=== PATIENT | female | born 1950 | race Caucasian/White ===

== ENCOUNTER 2021-06-13 14:25 | Inpatient (IN) | payer BC, MEDICARE ==
[~2021-06-13] VITALS: Ht 170.2 cm; Wt 89.5 kg
[2021-06-13 15:15] LABS: BASOPHILS # (AUTO) 0.1 X10'3 (0-0.2); BASOPHILS % (AUTO) 0.9 % (0-1); EOSINOPHILS # (AUTO) 0.3 X10'3 (0-0.9); EOSINOPHILS % (AUTO) 3.7 % (0-6); HEMOGLOBIN 10.3 g/dl (12.0-16.0); LYMPHOCYTES # (AUTO) 0.8 X10'3 (1.1-4.8); LYMPHOCYTES % (AUTO) 10.6 % (21-51); MEAN CORPUSCULAR HEMOGLOBIN 28.6 PG (27.0-31.0); MEAN CORPUSCULAR HGB CONC 32.2 g/dL (33.0-36.5); MEAN CORPUSCULAR VOLUME 88.7 FL (78-98); MEAN PLATELET VOLUME 7.5 FL (7.4-10.4); MONOCYTES # (AUTO) 0.2 X10'3 (0-0.9); MONOCYTES % (AUTO) 3.1 % (2-12); NEUTROPHILS % (AUTO) 81.7 % (42-75); PLATELET COUNT 375 X10'3 (140-440); RED BLOOD COUNT 3.61 X10'6 (4.20-5.60); RED CELL DISTRIBUTION WIDTH 15.3 % (11.5-14.5); WHITE BLOOD COUNT 7.3 X10'3 (4.5-11.0)
[2021-06-13 15:31] LABS: ALANINE AMINOTRANSFERASE 118 U/L (12-78); ALBUMIN 3.7 G/DL (3.4-5.0); ALBUMIN/GLOBULIN RATIO 1.1 (1.1-1.5); ALKALINE PHOSPHATASE 265 IU/L (46-116); ANION GAP 9 (8-16); ASPARTATE AMINO TRANSFERASE 288 U/L (10-37); BILIRUBIN,TOTAL 0.6 MG/DL (0.1-1.0); BLOOD UREA NITROGEN 15 MG/DL (7-18); BUN/CREATININE RATIO 15.8 (6.6-38.0); CALCIUM 9.8 MG/DL (8.5-10.1); CHLORIDE 100 MMOL/L (99-107); CREATININE 0.95 MG/DL (0.40-0.90); GLUCOSE 114 MG/DL (70-104); SODIUM 137 MMOL/L (135-145); TOTAL CARBON DIOXIDE 28.5 MMOL/L (24-32); TOTAL PROTEIN 7.1 G/DL (6.4-8.2); eGFR 58 ML/MIN
[2021-06-13] MEDS ORDERED: HYDROcodone/acetaminophen 10/325mg tab PO ONE (17:10)
[2021-06-13] MEDS ORDERED: acetaminophen 325mg tablet PO PRN (17:35)
[2021-06-13] MEDS ORDERED: magnesium hydroxide 30ml (MOM) UD suspension PO PRN (17:35)
[2021-06-13] MEDS: normal saline 1000ml 1,000 ML IV SCH (17:35)
[2021-06-13] MEDS ORDERED: mag hydrox/Alum hydrox/simeth 30ml oral suspension PO PRN (17:35)
[2021-06-13] MEDS ORDERED: ondansetron/PF 4mg/2ml inj IV PRN (17:35)
[2021-06-13] MEDS ORDERED: METO-395 PO (18:17)
[2021-06-13] MEDS ORDERED: ASCO500T20 PO (18:17)
[2021-06-13] MEDS ORDERED: LOSA100T57 PO (18:17)
[2021-06-13] MEDS ORDERED: MAGN500C16 PO (18:17)
[2021-06-13] MEDS ORDERED: HYDR12.55 PO (18:17)
[2021-06-13] MEDS ORDERED: AMIO200T61 PO (18:17)
[2021-06-13] MEDS ORDERED: APIX5TAB3 PO (18:17)
[2021-06-13] MEDS ORDERED: CHOL10006 PO (18:17)
[2021-06-13] MEDS ORDERED: DOCU100C40 PO ×2 (18:17)
[2021-06-13] MEDS ORDERED: HYDR-3972 PO (18:17)
[2021-06-13] MEDS ORDERED: SIMV-42 PO (18:17)
[2021-06-13] MEDS ORDERED: FERR325T29 PO (18:17)
[2021-06-13] MEDS: ferrous sulfate 325mg tablet PO SCH (18:35)
[2021-06-13] MEDS ORDERED: docusate sod 100mg capsule PO SCH (20:00)
--- NOTE | 2021-06-13 20:14 | NUR ---
DR. JOSE ROSE FOR PO MEDS. HOLD IRON PER MD ORDER
[2021-06-13] MEDS: metoprolol succinate 25mg (24-HOUR) SR. Tablet PO SCH (20:22)
[2021-06-13] MEDS: docusate sod 100mg capsule PO SCH (20:24)
[2021-06-13] MEDS ORDERED: atorvastatin 20mg tablet PO SCH (21:00)
[2021-06-14] MEDS: HYDROcodone/acetaminophen 10/325mg tab PO PRN ×3 (01:51→20:07)
[2021-06-14 02:34] LABS: ALBUMIN 3.6 G/DL (3.4-5.0); ALBUMIN/GLOBULIN RATIO 1.1 (1.1-1.5); ALKALINE PHOSPHATASE 360 IU/L (46-116); ANION GAP 7 (8-16); BILIRUBIN,TOTAL 1.8 MG/DL (0.1-1.0); BLOOD UREA NITROGEN 14 MG/DL (7-18); BUN/CREATININE RATIO 12.8 (6.6-38.0); CALCIUM 9.6 MG/DL (8.5-10.1); CHLORIDE 100 MMOL/L (99-107); CREATININE 1.09 MG/DL (0.40-0.90); GLUCOSE 127 MG/DL (70-104); POTASSIUM 3.8 MMOL/L (3.5-5.1); SODIUM 135 MMOL/L (135-145); TOTAL CARBON DIOXIDE 27.9 MMOL/L (24-32); TOTAL PROTEIN 6.9 G/DL (6.4-8.2); eGFR 50 ML/MIN
[2021-06-14 03:06] LABS: ASPARTATE AMINO TRANSFERASE 2699 U/L (10-37)
[2021-06-14 03:07] LABS: ALANINE AMINOTRANSFERASE 1510 U/L (12-78)
[2021-06-14] MEDS: normal saline 1000ml 1,000 ML IV SCH ×3 (03:35→17:25)
[2021-06-14] MEDS: metoprolol succinate 25mg (24-HOUR) SR. Tablet PO SCH ×2 (08:00→20:06)
[2021-06-14 09:01] LABS: BASOPHILS % (AUTO) 0.7 % (0-1); EOSINOPHILS % (AUTO) 0.5 % (0-6); HEMATOCRIT 30.9 % (35.0-45.0); HEMOGLOBIN 10.1 g/dl (12.0-16.0); LYMPHOCYTES # (AUTO) 0.6 X10'3 (1.1-4.8); LYMPHOCYTES % (AUTO) 9.2 % (21-51); MEAN CORPUSCULAR HEMOGLOBIN 28.7 PG (27.0-31.0); MEAN CORPUSCULAR HGB CONC 32.7 g/dL (33.0-36.5); MEAN CORPUSCULAR VOLUME 87.8 FL (78-98); MEAN PLATELET VOLUME 7.6 FL (7.4-10.4); MONOCYTES # (AUTO) 0.9 X10'3 (0-0.9); MONOCYTES % (AUTO) 12.8 % (2-12); NEUTROPHILS # (AUTO) 5.3 X10'3 (1.8-7.7); NEUTROPHILS % (AUTO) 76.8 % (42-75); PLATELET COUNT 357 X10'3 (140-440); RED BLOOD COUNT 3.52 X10'6 (4.20-5.60); RED CELL DISTRIBUTION WIDTH 15.7 % (11.5-14.5); WHITE BLOOD COUNT 6.9 X10'3 (4.5-11.0)
[2021-06-14] MEDS: amiodarone 200mg tablet PO SCH (10:29)
[2021-06-14] MEDS: cholecalciferol (vitamin D3) 1,000 unit (25mcg) tablet PO SCH (10:31)
[2021-06-14] MEDS: HYDROchlorothiazide 12.5mg capsule PO SCH (10:31)
[2021-06-14] MEDS: losartan 50mg tablet PO SCH (10:33)
[2021-06-14] MEDS: magnesium oxide 400mg tablet PO SCH (10:34)
[2021-06-14] MEDS: docusate sod 100mg capsule PO SCH ×2 (10:35→20:06)
--- NOTE | 2021-06-14 15:49 | NUR ---
Report received from Tressa MARTINEZ
[2021-06-14 16:10] VITALS: BP 139/51
--- NOTE | 2021-06-14 16:10 | NUR ---
Pt arrived to surgical floor via [facility]
[2021-06-14 18:00] VITALS: BP 131/55
--- NOTE | 2021-06-14 19:07 | NUR ---
Problems reprioritized. Patient report given, questions answered & plan of care reviewed with MICHELLE Ac.
[2021-06-15] VITALS (22 sets, daily range): BP systolic 102–174; BP diastolic 40–83
[2021-06-15] MEDS: HYDROcodone/acetaminophen 10/325mg tab PO PRN ×2 (04:44→21:22)
[2021-06-15 06:23] LABS: BASOPHILS % (AUTO) 0.7 % (0-1); EOSINOPHILS # (AUTO) 0.2 X10'3 (0-0.9); EOSINOPHILS % (AUTO) 3.2 % (0-6); HEMATOCRIT 28.3 % (35.0-45.0); HEMOGLOBIN 9.3 g/dl (12.0-16.0); LYMPHOCYTES # (AUTO) 0.7 X10'3 (1.1-4.8); LYMPHOCYTES % (AUTO) 11.9 % (21-51); MEAN CORPUSCULAR HEMOGLOBIN 28.7 PG (27.0-31.0); MEAN CORPUSCULAR HGB CONC 32.8 g/dL (33.0-36.5); MEAN CORPUSCULAR VOLUME 87.5 FL (78-98); MONOCYTES # (AUTO) 0.7 X10'3 (0-0.9); MONOCYTES % (AUTO) 11.3 % (2-12); NEUTROPHILS # (AUTO) 4.3 X10'3 (1.8-7.7); NEUTROPHILS % (AUTO) 72.9 % (42-75); PLATELET COUNT 335 X10'3 (140-440); RED BLOOD COUNT 3.23 X10'6 (4.20-5.60); WHITE BLOOD COUNT 5.9 X10'3 (4.5-11.0)
[2021-06-15 06:34] LABS: PRE OP PARTIAL THROMB. TIME 27 SECONDS (22-32)
[2021-06-15 06:38] LABS: ALANINE AMINOTRANSFERASE 669 U/L (12-78); ALBUMIN 3.2 G/DL (3.4-5.0); ALKALINE PHOSPHATASE 275 IU/L (46-116); ANION GAP 7 (8-16); ASPARTATE AMINO TRANSFERASE 432 U/L (10-37); BILIRUBIN,TOTAL 0.9 MG/DL (0.1-1.0); BLOOD UREA NITROGEN 15 MG/DL (7-18); CALCIUM 9.5 MG/DL (8.5-10.1); CHLORIDE 102 MMOL/L (99-107); CREATININE 1.07 MG/DL (0.40-0.90); GLUCOSE 94 MG/DL (70-104); POTASSIUM 3.5 MMOL/L (3.5-5.1); SODIUM 136 MMOL/L (135-145); TOTAL CARBON DIOXIDE 27.4 MMOL/L (24-32); TOTAL PROTEIN 6.5 G/DL (6.4-8.2); eGFR 51 ML/MIN
[2021-06-15] MEDS ORDERED: INDOCYANINE GREEN 25 MG/10 ML VIAL IV ONE (07:00)
--- NOTE | 2021-06-15 07:02 | NUR ---
Problems reprioritized. Patient report given, questions answered & plan of care reviewed with Nunu MARTINEZ.
--- NOTE | 2021-06-15 07:09 | NUR ---
Patient in room [facility] 357. I have received report from Osorio MARTINEZ and had the opportunity to ask questions and assume patient care.
--- NOTE | 2021-06-15 07:58 | NUR ---
Problems reprioritized. Patient report given, questions answered & plan of care reviewed with Luis Miguel OR smelter charger, also notified of pt's gastric sleeve.
[2021-06-15] MEDS: cholecalciferol (vitamin D3) 1,000 unit (25mcg) tablet PO SCH (08:00)
[2021-06-15] MEDS: magnesium oxide 400mg tablet PO SCH (08:00)
[2021-06-15] MEDS ORDERED: LIDOcaine 1% 30ml preserv. free vial ONE (08:00)
[2021-06-15] MEDS: losartan 50mg tablet PO SCH (08:00)
[2021-06-15] MEDS: docusate sod 100mg capsule PO SCH ×2 (08:00→20:23)
[2021-06-15] MEDS ORDERED: morphine 2 MG/ML inj. syringe IV PRN (08:00)
[2021-06-15] MEDS ORDERED: fentaNYL/PF 50MCG/1 ML 2ML syringe IV PRN ×2 (08:00)
[2021-06-15] MEDS: metoprolol succinate 25mg (24-HOUR) SR. Tablet PO SCH ×2 (08:00→20:23)
[2021-06-15] MEDS ORDERED: ondansetron/PF 4mg/2ml inj IV PRN (08:00)
[2021-06-15] MEDS ORDERED: hydrALAZINE 20mg/ml inj. IV PRN (08:00)
[2021-06-15] MEDS ORDERED: BUPIVAcaine/PF 2.5mg/ml (0.25%) 10ml vial ONE (08:00)
[2021-06-15] MEDS ORDERED: ringers solution, lacted 1,000 ML IV SCH (08:00)
[2021-06-15] MEDS: amiodarone 200mg tablet PO SCH (08:22)
--- NOTE | 2021-06-15 08:24 | NUR ---
phone call to OR delfin Thomas RN to give pt Amiodorone as ordered. Held Addendum: 06/15/21 at 0825 by Katherine Badillo RN Held BP meds due to low HR of 56, BP 105/57, pt asymptomatic and denies s/sx distress, no c/o. will continue to monitor.
[2021-06-15] MEDS ORDERED: fentaNYL/PF 50MCG/1 ML 2ML syringe ONE (08:45)
[2021-06-15] MEDS ORDERED: propofol inj 20 ML IV ONE (08:46)
[2021-06-15] MEDS ORDERED: midazolam 1 mg/ML 2ml injection ONE (08:46)
[2021-06-15] MEDS ORDERED: LIDOcaine 2% (20mg/ml) 5ml vial ONE (08:46)
[2021-06-15] MEDS ORDERED: meperidine/PF 50mg/ml syringe ONE (08:46)
[2021-06-15] MEDS ORDERED: rocuronium 10mg/ml inj IV ONE (08:46)
[2021-06-15] MEDS ORDERED: ondansetron/PF 4mg/2ml inj ONE (08:47)
[2021-06-15] MEDS ORDERED: sevoflurane 250ml liquid IH ONE (09:00)
[2021-06-15] MEDS ORDERED: neostigmine methylsulfate 1 MG/ML 10ml vial ONE (09:00)
[2021-06-15] MEDS ORDERED: ceFAZolin 1000mg inj ONE ×2 (09:03)
[2021-06-15] MEDS ORDERED: dexamethasone sod phosphate 4mg/ml inj. ONE (09:11)
[2021-06-15] MEDS ORDERED: glycopyrrolate 0.2mg/ml inj ONE (10:30)
[2021-06-15] MEDS ORDERED: sugammadex 200mg/2ml injection IV ONE (10:53)
--- NOTE | 2021-06-15 11:00 | NUR ---
Received from OR via , accompanied by Anesthesiologist DR CROFT and report given by Anesthesiolgist. PT PRESENTS WITH 20G LEFT HAND, VSS, ABD DRESSIGN DRY AND INTACT WITH LUCIA DRAIN. Addendum: 06/15/21 at 1121 by Roberta Berrios RN, RN Amended: Links added.
[2021-06-15] MEDS: morphine 4 MG/ML inj SYRINge IV PRN ×3 (11:23→12:15)
[2021-06-15] MEDS: labetalol 20mg/4ml (5mg/ml) syringe IV PRN ×3 (11:32→12:01)
--- NOTE | 2021-06-15 11:45 | NUR ---
I have received report from Roberta MARTINEZ Recovery and had the opportunity to ask questions and will assume patient care once to unit.
--- NOTE | 2021-06-15 12:30 | NUR ---
Pt back to Room 357B. A&Ox4, sleepy from surgery but easily aroused. VSS. No s/sx distress, no c/o at this time. x3 Lap Choley sites to mid-abdomen with bandaids, CDI, LUCIA drain to right draining small amt sanguinous fluid with bandaid CDI. Gag reflex checked and is intact. Ice chips and water given. Will continue to monitor.
--- NOTE | 2021-06-15 12:30 | NUR ---
PATIENT TAKEN TO ROOM WITH ALL BELONGINGS AND HOOKED UP TO MONITORS IN ROOM AND GIVEN CALL LIGHT, REPORT GIVEN TO KHOI MARTINEZ WHO HAS TAKEN OVER PATIENT CARE. Addendum: 06/15/21 at 1238 by Roberta Berrios RN, RN Amended: Links added.
[2021-06-15] MEDS: HYDROchlorothiazide 12.5mg capsule PO SCH (13:26)
--- NOTE | 2021-06-15 18:25 | NUR ---
Problems reprioritized. Patient report given, questions answered & plan of care reviewed with Desiree MARTINEZ.
--- NOTE | 2021-06-15 18:30 | NUR ---
Patient in room [facility] 357. I have received report from KHOI and had the opportunity to ask questions and assume patient care. ASSUMED CARE OF PT WITH RN STUDENT CHANDRIKA Huffman
[2021-06-15] MEDS: HYDROmorphone inj. 0.5 MG/0.5 ML DISP.SYRIN IV PRN ×2 (19:05→23:45)
[2021-06-15] MEDS: normal saline 1000ml 1,000 ML IV SCH ×2 (19:35→20:30)
[2021-06-15] MEDS: enoxaparin 30mg/0.3ml syringe SQ SCH (20:25)
--- NOTE | 2021-06-15 21:50 | NUR ---
ATTEMPTED TO AMBULATE PT WITH 2 PERSON AND FWW. PT C/O INCREASED ABDOMINAL PAIN, DIZZINESS AND SOB. PT ASSISTED BACK TO BED. BP 118/65, HR 61, RR 20, OXYGEN SATURATIONS 92% RA. PT VERBALIZED RELIEF UPON RETURNING TO BED. WILL CONTINUE TO MONITOR.
[2021-06-16] VITALS (10 sets, daily range): BP systolic 115–149; BP diastolic 57–84
--- NOTE | 2021-06-16 03:20 | NUR ---
Student documentation: I have reviewed and agree with all interventions, assessments performed and documented by CHANDRIKA Frost Medication Administration: For this medication-pass time frame, all medication were reviewed, dispensed, administered and documented per hospital policy by CHANDRIKA Huffman
[2021-06-16] MEDS: HYDROcodone/acetaminophen 10/325mg tab PO PRN ×3 (04:09→19:29)
[2021-06-16] MEDS: HYDROmorphone inj. 0.5 MG/0.5 ML DISP.SYRIN IV PRN ×2 (05:41→14:54)
[2021-06-16] MEDS: normal saline 1000ml 1,000 ML IV SCH ×3 (05:46→19:32)
[2021-06-16 06:23] LABS: BASOPHILS # (AUTO) 0.1 X10'3 (0-0.2); BASOPHILS % (AUTO) 0.5 % (0-1); EOSINOPHILS % (AUTO) 0.1 % (0-6); HEMOGLOBIN 7.1 g/dl (12.0-16.0); LYMPHOCYTES # (AUTO) 0.8 X10'3 (1.1-4.8); LYMPHOCYTES % (AUTO) 7.4 % (21-51); MEAN CORPUSCULAR HEMOGLOBIN 29.1 PG (27.0-31.0); MEAN CORPUSCULAR HGB CONC 33.3 g/dL (33.0-36.5); MEAN CORPUSCULAR VOLUME 87.3 FL (78-98); MEAN PLATELET VOLUME 7.9 FL (7.4-10.4); MONOCYTES % (AUTO) 8.9 % (2-12); NEUTROPHILS # (AUTO) 9.3 X10'3 (1.8-7.7); NEUTROPHILS % (AUTO) 83.1 % (42-75); PLATELET COUNT 322 X10'3 (140-440); RED BLOOD COUNT 2.45 X10'6 (4.20-5.60); WHITE BLOOD COUNT 11.2 X10'3 (4.5-11.0)
[2021-06-16 06:26] LABS: ALANINE AMINOTRANSFERASE 335 U/L (12-78); ALBUMIN 2.6 G/DL (3.4-5.0); ALBUMIN/GLOBULIN RATIO 0.9 (1.1-1.5); ALKALINE PHOSPHATASE 180 IU/L (46-116); ANION GAP 6 (8-16); ASPARTATE AMINO TRANSFERASE 99 U/L (10-37); BILIRUBIN,TOTAL 0.7 MG/DL (0.1-1.0); BLOOD UREA NITROGEN 13 MG/DL (7-18); BUN/CREATININE RATIO 14.6 (6.6-38.0); CALCIUM 8.6 MG/DL (8.5-10.1); CHLORIDE 102 MMOL/L (99-107); CREATININE 0.89 MG/DL (0.40-0.90); GLUCOSE 124 MG/DL (70-104); POTASSIUM 4.1 MMOL/L (3.5-5.1); SODIUM 135 MMOL/L (135-145); TOTAL CARBON DIOXIDE 27.4 MMOL/L (24-32); TOTAL PROTEIN 5.6 G/DL (6.4-8.2); eGFR 63 ML/MIN
--- NOTE | 2021-06-16 06:32 | NUR ---
Problems reprioritized. Patient report given, questions answered & plan of care reviewed with LILIAN.
[2021-06-16 06:45] LABS: HEMATOCRIT 21.4 % (35.0-45.0)
--- NOTE | 2021-06-16 07:21 | NUR ---
PAGER ID: [phone] MESSAGE: LILIAN SURG [id number] RE: [id number] PATIENT HAD A LAB REPORTED H+H OF 7.1/21.4. THANKS
[2021-06-16] MEDS: amiodarone 200mg tablet PO SCH (08:47)
[2021-06-16] MEDS: docusate sod 100mg capsule PO SCH ×2 (08:47→19:29)
[2021-06-16] MEDS: magnesium oxide 400mg tablet PO SCH (08:48)
[2021-06-16] MEDS: HYDROchlorothiazide 12.5mg capsule PO SCH (08:48)
[2021-06-16] MEDS: losartan 50mg tablet PO SCH (08:48)
[2021-06-16] MEDS: metoprolol succinate 25mg (24-HOUR) SR. Tablet PO SCH ×2 (08:50→19:31)
[2021-06-16] MEDS: ascorbic acid 500mg tablet PO SCH (08:51)
[2021-06-16] MEDS: cholecalciferol (vitamin D3) 1,000 unit (25mcg) tablet PO SCH (08:53)
[2021-06-16] MEDS: enoxaparin 30mg/0.3ml syringe SQ SCH (08:54)
[2021-06-16] MEDS ORDERED: acetaminophen 325mg tablet PO ONE (09:25)
[2021-06-16] MEDS ORDERED: diphenhydrAMINE 50 mg/ml inj IV ONE (09:25)
[2021-06-16] MEDS ORDERED: pneumococcal 23-VAL P-sac vacc 25 mcg/0.5ml vial IMVAC ONE (10:00)
[2021-06-16] MEDS ORDERED: ondansetron 4mg rapidly disintigrating tab PO PRN (15:00)
[2021-06-16] MEDS ORDERED: ondansetron/PF 4mg/2ml inj IV PRN (15:00)
[2021-06-16 17:31] LABS: HEMOGLOBIN 7.4 g/dl (12.0-16.0); MEAN CORPUSCULAR HEMOGLOBIN 28.9 PG (27.0-31.0); MEAN CORPUSCULAR HGB CONC 33.4 g/dL (33.0-36.5); MEAN CORPUSCULAR VOLUME 86.5 FL (78-98); MEAN PLATELET VOLUME 7.6 FL (7.4-10.4); PLATELET COUNT 293 X10'3 (140-440); RED BLOOD COUNT 2.54 X10'6 (4.20-5.60); RED CELL DISTRIBUTION WIDTH 15.5 % (11.5-14.5); WHITE BLOOD COUNT 11.8 X10'3 (4.5-11.0)
--- NOTE | 2021-06-16 17:41 | NUR ---
PAGER ID: [phone] MESSAGE: mainor surg [id number] re: Kristi Martel 357b patient has another critical Hct of 22.0. 2 hours after completion of unit.
--- NOTE | 2021-06-16 18:00 | NUR ---
Patient in room [facility] 357. Di INGRAM student and I have received report from MICHELLE Varela and had the opportunity to ask questions and assume patient care.
--- NOTE | 2021-06-16 18:28 | NUR ---
Problems reprioritized. Patient report given, questions answered & plan of care reviewed with Zachary MARTINEZ.
[2021-06-16] MEDS: ferrous sulfate 325mg tablet PO SCH (18:35)
[2021-06-17] VITALS (7 sets, daily range): BP systolic 135–164; BP diastolic 48–70
[2021-06-17] MEDS: HYDROcodone/acetaminophen 5mg/325mg tablet PO PRN ×2 (00:13→04:21)
[2021-06-17 06:09] LABS: BASOPHILS % (AUTO) 0.3 % (0-1); EOSINOPHILS # (AUTO) 0.1 X10'3 (0-0.9); EOSINOPHILS % (AUTO) 1.2 % (0-6); HEMATOCRIT 25.9 % (35.0-45.0); HEMOGLOBIN 8.6 g/dl (12.0-16.0); LYMPHOCYTES % (AUTO) 8.3 % (21-51); MEAN CORPUSCULAR HEMOGLOBIN 29.2 PG (27.0-31.0); MEAN CORPUSCULAR HGB CONC 33.1 g/dL (33.0-36.5); MEAN CORPUSCULAR VOLUME 88.1 FL (78-98); MEAN PLATELET VOLUME 7.8 FL (7.4-10.4); MONOCYTES # (AUTO) 1.2 X10'3 (0-0.9); MONOCYTES % (AUTO) 10.6 % (2-12); NEUTROPHILS # (AUTO) 9.3 X10'3 (1.8-7.7); NEUTROPHILS % (AUTO) 79.6 % (42-75); PLATELET COUNT 284 X10'3 (140-440); RED BLOOD COUNT 2.94 X10'6 (4.20-5.60); RED CELL DISTRIBUTION WIDTH 15.3 % (11.5-14.5); WHITE BLOOD COUNT 11.7 X10'3 (4.5-11.0)
[2021-06-17 06:26] LABS: ALANINE AMINOTRANSFERASE 202 U/L (12-78); ALBUMIN 2.5 G/DL (3.4-5.0); ALBUMIN/GLOBULIN RATIO 0.8 (1.1-1.5); ALKALINE PHOSPHATASE 146 IU/L (46-116); ANION GAP 6 (8-16); ASPARTATE AMINO TRANSFERASE 36 U/L (10-37); BILIRUBIN,TOTAL 1.3 MG/DL (0.1-1.0); BLOOD UREA NITROGEN 13 MG/DL (7-18); CALCIUM 8.7 MG/DL (8.5-10.1); CHLORIDE 103 MMOL/L (99-107); CREATININE 0.81 MG/DL (0.40-0.90); GLUCOSE 101 MG/DL (70-104); POTASSIUM 3.8 MMOL/L (3.5-5.1); SODIUM 136 MMOL/L (135-145); TOTAL CARBON DIOXIDE 26.9 MMOL/L (24-32); TOTAL PROTEIN 5.6 G/DL (6.4-8.2); eGFR 70 ML/MIN
--- NOTE | 2021-06-17 06:28 | NUR ---
I agree with assessments, documentation, and report given from JUAN JOSE Sev[place] Student. Report was given to MICHELLE Varela and MELI Neal student
--- NOTE | 2021-06-17 06:33 | NUR ---
Problems reprioritized. Patient report given, questions answered & plan of care reviewed with Avery Sebastian RN and SN Josr.
--- NOTE | 2021-06-17 08:09 | NUR ---
Patient in room [facility] 357. I have received report from Zachary MARTINEZ and had the opportunity to ask questions and assume patient care.
[2021-06-17] MEDS: amiodarone 200mg tablet PO SCH (08:40)
[2021-06-17] MEDS: docusate sod 100mg capsule PO SCH ×2 (08:40→20:10)
[2021-06-17] MEDS: losartan 50mg tablet PO SCH (08:41)
[2021-06-17] MEDS: magnesium oxide 400mg tablet PO SCH (08:41)
[2021-06-17] MEDS: HYDROchlorothiazide 12.5mg capsule PO SCH (08:42)
[2021-06-17] MEDS: metoprolol succinate 25mg (24-HOUR) SR. Tablet PO SCH ×2 (08:43→20:11)
[2021-06-17] MEDS: cholecalciferol (vitamin D3) 1,000 unit (25mcg) tablet PO SCH (08:43)
[2021-06-17] MEDS ORDERED: pneumococcal 23-VAL P-sac vacc 25 mcg/0.5ml vial IMVAC ONE (10:00)
[2021-06-17] MEDS: HYDROcodone/acetaminophen 10/325mg tab PO PRN ×3 (11:13→23:35)
[2021-06-17] MEDS ORDERED: furosemide 40mg/4ml inj IV ONE (11:45)
--- NOTE | 2021-06-17 16:19 | NUR ---
I have received report from MICHELLE Varela and had the opportunity to ask questions and assume patient care.
--- NOTE | 2021-06-17 17:03 | NUR ---
Problems reprioritized. Patient report given, questions answered & plan of care reviewed with Zachary MARTINEZ.
[2021-06-18] MEDS: HYDROcodone/acetaminophen 10/325mg tab PO PRN ×3 (05:27→14:38)
[2021-06-18 06:28] LABS: BASOPHILS # (AUTO) 0.1 X10'3 (0-0.2); BASOPHILS % (AUTO) 0.5 % (0-1); EOSINOPHILS # (AUTO) 0.2 X10'3 (0-0.9); EOSINOPHILS % (AUTO) 1.2 % (0-6); HEMATOCRIT 24.9 % (35.0-45.0); HEMOGLOBIN 8.3 g/dl (12.0-16.0); LYMPHOCYTES # (AUTO) 1.6 X10'3 (1.1-4.8); LYMPHOCYTES % (AUTO) 9.8 % (21-51); MEAN CORPUSCULAR HEMOGLOBIN 29.2 PG (27.0-31.0); MEAN CORPUSCULAR HGB CONC 33.3 g/dL (33.0-36.5); MEAN CORPUSCULAR VOLUME 87.8 FL (78-98); MEAN PLATELET VOLUME 7.6 FL (7.4-10.4); MONOCYTES # (AUTO) 1.7 X10'3 (0-0.9); MONOCYTES % (AUTO) 10.2 % (2-12); NEUTROPHILS # (AUTO) 13.1 X10'3 (1.8-7.7); NEUTROPHILS % (AUTO) 78.3 % (42-75); PLATELET COUNT 292 X10'3 (140-440); RED BLOOD COUNT 2.84 X10'6 (4.20-5.60); RED CELL DISTRIBUTION WIDTH 15.4 % (11.5-14.5); WHITE BLOOD COUNT 16.7 X10'3 (4.5-11.0)
[2021-06-18 06:31] LABS: ALANINE AMINOTRANSFERASE 131 U/L (12-78); ALBUMIN 2.4 G/DL (3.4-5.0); ALBUMIN/GLOBULIN RATIO 0.8 (1.1-1.5); ALKALINE PHOSPHATASE 138 IU/L (46-116); ANION GAP 4 (8-16); ASPARTATE AMINO TRANSFERASE 18 U/L (10-37); BILIRUBIN,TOTAL 0.9 MG/DL (0.1-1.0); BLOOD UREA NITROGEN 13 MG/DL (7-18); BUN/CREATININE RATIO 14.9 (6.6-38.0); CALCIUM 8.8 MG/DL (8.5-10.1); CHLORIDE 100 MMOL/L (99-107); CREATININE 0.87 MG/DL (0.40-0.90); GLUCOSE 94 MG/DL (70-104); POTASSIUM 3.2 MMOL/L (3.5-5.1); SODIUM 133 MMOL/L (135-145); TOTAL CARBON DIOXIDE 28.7 MMOL/L (24-32); TOTAL PROTEIN 5.6 G/DL (6.4-8.2); eGFR 64 ML/MIN
--- NOTE | 2021-06-18 06:44 | NUR ---
Problems reprioritized. Patient report given, questions answered & plan of care reviewed with MICHELLE Berg.
[2021-06-18 08:00] VITALS: BP 117/39
[2021-06-18] MEDS: losartan 50mg tablet PO SCH (09:12)
[2021-06-18] MEDS: metoprolol succinate 25mg (24-HOUR) SR. Tablet PO SCH (09:14)
[2021-06-18] MEDS: docusate sod 100mg capsule PO SCH (09:16)
[2021-06-18] MEDS: magnesium oxide 400mg tablet PO SCH (09:16)
[2021-06-18] MEDS: HYDROchlorothiazide 12.5mg capsule PO SCH (09:16)
[2021-06-18] MEDS: amiodarone 200mg tablet PO SCH (09:17)
[2021-06-18] MEDS: ascorbic acid 500mg tablet PO SCH (09:19)
--- NOTE | 2021-06-18 09:38 | NUR ---
AM medication were administered by Jacquelyn Clay, Student Nurse, observed by this nurse.
[2021-06-18] MEDS: cholecalciferol (vitamin D3) 1,000 unit (25mcg) tablet PO SCH (10:12)
[2021-06-18] MEDS ORDERED: POTA20TA19 PO (10:21)
[2021-06-18] MEDS ORDERED: potassium Cl 20 mEq SR tablet PO PRN ×2 (10:30)
[2021-06-18] MEDS ORDERED: POTASSIUM BICARB 20meq eff tab 20 MEQ TABLET.EFF PO PRN ×2 (10:39→10:40)
[2021-06-18 11:00] VITALS: BP 114/36
[2021-06-18] MEDS ORDERED: POTASSIUM BICARBONATE/CIT AC 10 MEQ TABLET.EFF PO PRN (12:18)
--- NOTE | 2021-06-18 13:04 | NUR ---
PAGER ID: [phone] MESSAGE: Simi Martel 357R Please note PT note for today. Recommends more PT. I watched pt. transfer. 1 min assist. Pt. states she has her son and . k ordered for discharge do you still want me to replace? Please clarify. thanks Morena [phone]
[2021-06-18] MEDS ORDERED: POTASSIUM BICARB 20meq eff tab 20 MEQ TABLET.EFF PO ONE (13:30)
--- NOTE | 2021-06-18 13:58 | NUR ---
DISCHARGE PAPERWORK REVIEWED WITH PT. SHE IS AWARE SHE NEED TO ASK HER AND SON FOR HELP WHEN NEEDED AT HOME. DISCUSSED F/U WITH PCP, HEARING IMPAIRED TEACHER, AND VEGA. SHE AGREES TO MAKE AN APPOINTMENT FOR WEDNESDAY. DISCUSSED DISCHARGE MEDICATION AND EDUCATION IN A HIGH POTASSIUM DIET PROVIDED. pT. AWARE NOT TO TAKE STATIN AND BLOOD THINNER PER MDS ORDERS. EXTENSIVE DISCUSSION REGARDING LUCIA CARE DISCUSSED WITH PT. SHE HAD AMPLE OPPORTUNITIES TO ASK QUESTIONS ALTHOUGH HAD NONE. DEMONSTRATED THE ABILITY TO EMPTY HER DRAIN. 90ML BROWN OUTPUT. NO C/O PAIN OR ANY COMPLAINTS AT THIS TIME. PT EAGER TO GET HOME. SHE CALLED HER FOR A RIDE HOME. 40MEQ K GIVEN ONCE PER MD ORDERS. BELONGINGS GATHERED IN ROOM. NA TO ASSIST PT. TO DRESS AND ESCORT IN W/C DOWNSTAIRS TO RIDE HOME. IV DC'D, CANNULA INTACT, NO S/SX BLEEDING NOTED, PRESSURE BANDAGE APPLIED.
[2021-06-18] MEDS ORDERED: metoprolol succinate 25mg (24-HOUR) SR. Tablet PO SCH (14:44)
[2021-06-19] MEDS ORDERED: K and/or MAG REPLACEMENT MC SCH (08:00)
== END 2021-06-18 14:52 | disposition home or self-care (01) | DRG 417 ==
LOC: ER 14:26 → ED HOLD 17:38 → EDBEDREQ 06-14 14:55 → SUR 3N 06-14 16:11 → UNDODISIN 06-18 14:07
PROVIDERS: ADMIT Family Medicine; ATTEND Family Medicine
PROC: BF53200 Other Imaging of Gallbladder and Bile Ducts using Fluorescing Agent, Indocyanine Green Dye, Intraoperative (ICD-10-PCS; 2021-06-15)
PROC: 8E0W4CZ Robotic Assisted Procedure of Trunk Region, Percutaneous Endoscopic Approach (ICD-10-PCS; 2021-06-15)
PROC: 0FT44ZZ Resection of Gallbladder, Percutaneous Endoscopic Approach (ICD-10-PCS; principal; 2021-06-15 09:00)
PROC: 30233N1 Transfusion of Nonautologous Red Blood Cells into Peripheral Vein, Percutaneous Approach (ICD-10-PCS; 2021-06-16)
DX: K80.67 Calculus of gallbladder and bile duct with acute and chronic cholecystitis with obstruction (principal); K85.10 Biliary acute pancreatitis without necrosis or infection; I48.20 Chronic atrial fibrillation, unspecified; D62 Acute posthemorrhagic anemia; K76.0 Fatty (change of) liver, not elsewhere classified; R06.02 Shortness of breath; C43.9 Malignant melanoma of skin, unspecified; E87.6 Hypokalemia; I10 Essential (primary) hypertension; E78.5 Hyperlipidemia, unspecified; G89.4 Chronic pain syndrome; R74.01 Elevation of levels of liver transaminase levels; Z20.822 Contact with and (suspected) exposure to COVID-19; K82.8 Other specified diseases of gallbladder; Z79.01 Long term (current) use of anticoagulants; Z98.84 Bariatric surgery status; Z90.710 Acquired absence of both cervix and uterus; Z90.49 Acquired absence of other specified parts of digestive tract; Z79.899 Other long term (current) drug therapy
CPT/HCPCS: 36415; 36430; 71045; 74181; 76700; 80053; 82948; 83880; 84484; 85025; 85027; 85610; 85730; 86885; 86900; 86901; 86920; 87081; 87635; 88304; 90732; 93005; 96360; 97110; 97161; 97530; 99285; A4215; A4618; A7000; C9399; C9803; G0378; J0360; J0690; J1100; J1170; J1650; J1940; J2001; J2175; J2250; J2270; J2405; J2704; J2710; J3010; J3490; J7030; J7120; P9016

== ENCOUNTER 2021-07-09 09:55 | Inpatient (IN) | payer MEDICARE, BC ==
[~2021-07-09] VITALS: Ht 170.2 cm; Wt 88.6 kg
[~2021-07-09 09:55] MED LIST: AMIO200T61 PO; ASCO500T20 PO; CHOL10006 PO; DOCU100C40 PO; FERR325T29 PO; HYDR-3972 PO; HYDR12.55 PO; LOSA100T57 PO; MAGN500C16 PO; METO-395 PO; POTA20TA19 PO
[2021-07-09] MEDS ORDERED: piperacillin/tazo 3.375gm/50ml 50 ML IV ONE (10:15)
[2021-07-09] MEDS ORDERED: vancomycin/NS 1 GM ADD-VANTAGE 250 ML IV ONE (10:15)
[2021-07-09] MEDS ORDERED: normal saline 1000ML IV soln IV ONE (10:15)
[2021-07-09] MEDS ORDERED: IOHEXOL 12MG/ML oral solution 500 ML BOTTLE PO ONE (10:25)
[2021-07-09 10:37] LABS: BASOPHILS # (AUTO) 0.1 X10'3 (0-0.2); BASOPHILS % (AUTO) 0.5 % (0-1); EOSINOPHILS # (AUTO) 0.2 X10'3 (0-0.9); EOSINOPHILS % (AUTO) 1.2 % (0-6); HEMATOCRIT 22.7 % (35.0-45.0); HEMOGLOBIN 7.5 g/dl (12.0-16.0); LYMPHOCYTES # (AUTO) 1.3 X10'3 (1.1-4.8); MEAN CORPUSCULAR HEMOGLOBIN 27.8 PG (27.0-31.0); MEAN CORPUSCULAR HGB CONC 32.9 g/dL (33.0-36.5); MEAN CORPUSCULAR VOLUME 84.6 FL (78-98); MEAN PLATELET VOLUME 6.5 FL (7.4-10.4); MONOCYTES # (AUTO) 2.1 X10'3 (0-0.9); MONOCYTES % (AUTO) 11.2 % (2-12); NEUTROPHILS # (AUTO) 14.8 X10'3 (1.8-7.7); NEUTROPHILS % (AUTO) 80.1 % (42-75); PLATELET COUNT 777 X10'3 (140-440); RED BLOOD COUNT 2.68 X10'6 (4.20-5.60); WHITE BLOOD COUNT 18.4 X10'3 (4.5-11.0)
[2021-07-09 10:58] LABS: ALANINE AMINOTRANSFERASE 12 U/L (12-78); ALBUMIN 2.4 G/DL (3.4-5.0); ALBUMIN/GLOBULIN RATIO 0.5 (1.1-1.5); ALKALINE PHOSPHATASE 151 IU/L (46-116); ANION GAP 7 (8-16); ASPARTATE AMINO TRANSFERASE 11 U/L (10-37); BILIRUBIN,TOTAL 0.4 MG/DL (0.1-1.0); BLOOD UREA NITROGEN 21 MG/DL (7-18); BUN/CREATININE RATIO 18.6 (6.6-38.0); CALCIUM 9.4 MG/DL (8.5-10.1); CHLORIDE 96 MMOL/L (99-107); CREATININE 1.13 MG/DL (0.40-0.90); GLUCOSE 113 MG/DL (70-104); POTASSIUM 4.2 MMOL/L (3.5-5.1); SODIUM 130 MMOL/L (135-145); TOTAL CARBON DIOXIDE 26.7 MMOL/L (24-32); TOTAL PROTEIN 7.1 G/DL (6.4-8.2); eGFR 48 ML/MIN
--- NOTE | 2021-07-09 11:06 | NUR ---
PT RAC FIELD IV INFILTRATED, NEW LINE STARTED.
[2021-07-09 12:03] LABS: CLARITY,URINE SLIGHTLY CLOUDY (Clear); COLOR,URINE YELLOW (Yellow); GLUCOSE, URINE NEGATIVE (Neg); KETONES,URINE NEGATIVE (Neg); NITRITES, URINE NEGATIVE (Neg); OCCULT BLOOD,URINE NEGATIVE (Neg); PROTEIN,URINE NEGATIVE (Neg); UA COLLECTION TYPE CLN CATCH MIDSTREAM
[2021-07-09 12:04] LABS: LEUKOCYTE ESTERASE ,URINE NEGATIVE (Neg); UROBILINOGEN,URINE 0.2 E.U/dL (0.2-1.0)
[2021-07-09] MEDS ORDERED: iohexol 300mg/ml 100ml inj. ONE (12:04)
[2021-07-09 12:12] LABS: BACTERIA,URINE 1+ /HPF (Neg); MUCUS STRANDS FEW /LPF (Neg); RBC,URINE 0-2 /HPF (0-2); SQUAMOUS EPITHELIAL CELL,UR MANY /LPF (FEW); TRANSITIONAL EPI CELLS,URINE FEW /HPF; WBC,URINE 0-4 /HPF (0-4)
[2021-07-09] MEDS ORDERED: morphine 4 MG/ML inj SYRINge IV ONE (12:15)
--- NOTE | 2021-07-09 12:28 | NUR ---
relieving RN for break, pt is in CT
--- NOTE | 2021-07-09 13:17 | NUR ---
pt c/o old pressure sore to coccyx area, pictures taken, pt rolled to left, pt also used bedpan to urinate 300ml of yellow urine
[2021-07-09] MEDS ORDERED: APIX5TAB3 PO (13:27)
[2021-07-09] MEDS ORDERED: SIMV-42 PO (13:32)
[2021-07-09] MEDS ORDERED: mag hydrox/Alum hydrox/simeth 30ml oral suspension PO PRN (13:35)
[2021-07-09] MEDS ORDERED: acetaminophen 325mg tablet PO PRN (13:35)
[2021-07-09] MEDS ORDERED: ondansetron/PF 4mg/2ml inj IV PRN (13:35)
[2021-07-09] MEDS ORDERED: HYDROcodone/acetaminophen 5mg/325mg tablet PO PRN (13:35)
[2021-07-09] MEDS ORDERED: morphine 2 MG/ML inj. syringe IV PRN (13:35)
[2021-07-09] MEDS ORDERED: magnesium hydroxide 30ml (MOM) UD suspension PO PRN (13:35)
[2021-07-09] MEDS ORDERED: tPA-cathflo 2mg/2ml IV flush 2 MG in normal saline 100ml IV soln 20 ML ICATH ONE (14:05)
[2021-07-09] MEDS: normal saline 1000ml 1,000 ML IV SCH (14:08)
--- NOTE | 2021-07-09 15:48 | NUR ---
RELIEVING RN FOR BREAK, PT IS RESTING QUIETLY ON BED, FAMILY AT BEDSIDE
[2021-07-09 16:25] VITALS: BP 103/50
[2021-07-09 16:40] VITALS: BP 109/53
[2021-07-09 17:40] VITALS: BP 108/47
[2021-07-09 18:39] VITALS: BP 112/57
[2021-07-09] MEDS: docusate sod 100mg capsule PO SCH ×2 (18:53→19:09)
[2021-07-09] MEDS: HYDROcodone/acetaminophen 10/325mg tab PO PRN ×2 (18:53→23:03)
[2021-07-09] MEDS: piperacillin/tazo 3.375gm/50ml 50 ML IV SCH (18:53)
[2021-07-09] MEDS: magnesium oxide 400mg tablet PO SCH (18:53)
[2021-07-09] MEDS: metoprolol succinate 25mg (24-HOUR) SR. Tablet PO SCH (18:57)
--- NOTE | 2021-07-09 23:15 | NUR ---
Patient arrived to unit in no apparent distress. ALOx4. Dressing changed and LUCIA changed after arrival to [facility]. Belongings arrived with patient. Repoert was received prior to ptient being transported to unit.
[2021-07-10] VITALS: BP 116/55
[2021-07-10] MEDS: piperacillin/tazo 3.375gm/50ml 50 ML IV SCH ×4 (01:16→23:20)
[2021-07-10] MEDS: normal saline 1000ml 1,000 ML IV SCH ×2 (01:16→21:59)
--- NOTE | 2021-07-10 06:38 | NUR ---
Patient in room [facility] 349. I have received report from MICHELLE Sharma and had the opportunity to ask questions and assume patient care.
--- NOTE | 2021-07-10 06:44 | NUR ---
Problems reprioritized. Patient report given, questions answered & plan of care reviewed with MICHELLE Olguin.
[2021-07-10 06:54] LABS: BASOPHILS # (AUTO) 0.1 X10'3 (0-0.2); EOSINOPHILS # (AUTO) 0.2 X10'3 (0-0.9); EOSINOPHILS % (AUTO) 2.5 % (0-6); HEMOGLOBIN 8.1 g/dl (12.0-16.0); LYMPHOCYTES # (AUTO) 1.6 X10'3 (1.1-4.8)
[2021-07-10 06:56] LABS: BASOPHILS % (AUTO) 0.9 % (0-1); HEMATOCRIT 24.1 % (35.0-45.0); LYMPHOCYTES % (AUTO) 16.4 % (21-51); MEAN CORPUSCULAR HEMOGLOBIN 28.8 PG (27.0-31.0); MEAN CORPUSCULAR HGB CONC 33.7 g/dL (33.0-36.5); MEAN CORPUSCULAR VOLUME 85.6 FL (78-98); MEAN PLATELET VOLUME 6.4 FL (7.4-10.4); MONOCYTES # (AUTO) 0.8 X10'3 (0-0.9); MONOCYTES % (AUTO) 8.7 % (2-12); NEUTROPHILS # (AUTO) 6.9 X10'3 (1.8-7.7); NEUTROPHILS % (AUTO) 71.5 % (42-75); PLATELET COUNT 680 X10'3 (140-440); RED BLOOD COUNT 2.81 X10'6 (4.20-5.60); RED CELL DISTRIBUTION WIDTH 15.2 % (11.5-14.5); WHITE BLOOD COUNT 9.7 X10'3 (4.5-11.0)
[2021-07-10 07:00] VITALS: BP 124/54
[2021-07-10 07:23] LABS: ALANINE AMINOTRANSFERASE 12 U/L (12-78); ALBUMIN 1.9 G/DL (3.4-5.0); ALBUMIN/GLOBULIN RATIO 0.5 (1.1-1.5); ALKALINE PHOSPHATASE 114 IU/L (46-116); ANION GAP 7 (8-16); ASPARTATE AMINO TRANSFERASE 7 U/L (10-37); BILIRUBIN,TOTAL 0.5 MG/DL (0.1-1.0); BLOOD UREA NITROGEN 11 MG/DL (7-18); BUN/CREATININE RATIO 12.1 (6.6-38.0); CALCIUM 8.5 MG/DL (8.5-10.1); CHLORIDE 105 MMOL/L (99-107); CREATININE 0.91 MG/DL (0.40-0.90); GLUCOSE 91 MG/DL (70-104); POTASSIUM 4.2 MMOL/L (3.5-5.1); SODIUM 140 MMOL/L (135-145); TOTAL CARBON DIOXIDE 28.2 MMOL/L (24-32); TOTAL PROTEIN 6.1 G/DL (6.4-8.2); eGFR 61 ML/MIN
[2021-07-10] MEDS ORDERED: docusate sod 100mg capsule PO SCH (08:00)
[2021-07-10] MEDS: losartan 50mg tablet PO SCH (08:00)
[2021-07-10] MEDS: metoprolol succinate 25mg (24-HOUR) SR. Tablet PO SCH ×2 (08:00→20:02)
[2021-07-10] MEDS: atorvastatin 10mg tablet PO SCH (08:17)
[2021-07-10] MEDS: magnesium oxide 400mg tablet PO SCH ×2 (08:18→20:01)
[2021-07-10] MEDS: cholecalciferol (vitamin D3) 1,000 unit (25mcg) tablet PO SCH (08:19)
[2021-07-10] MEDS: docusate sod 100mg capsule PO SCH ×3 (08:20→21:00)
[2021-07-10] MEDS: amiodarone 200mg tablet PO SCH (08:26)
[2021-07-10] MEDS: HYDROchlorothiazide 12.5mg capsule PO SCH (09:28)
--- NOTE | 2021-07-10 09:29 | NUR ---
Spoke with hospitalist while he rounded on pts. Covering for primary RN. OK to give hydrochlorothiazide with low HR per MD.
[2021-07-10 10:34] LABS: BURR CELLS FEW; HYPOCHROMASIA 1+; PLATELET ESTIMATE INCREASED; SCHISTOCYTES FEW
[2021-07-10] MEDS: HYDROcodone/acetaminophen 10/325mg tab PO PRN ×3 (10:57→21:58)
[2021-07-10 11:00] VITALS: BP 135/53
[2021-07-10] MEDS ORDERED: ondansetron 4mg rapidly disintigrating tab PO PRN (14:40)
[2021-07-10] MEDS ORDERED: tPA-cathflo 2mg/2ml IV flush 5 MG in normal saline 100ml IV soln 50 ML ICATH ONE (16:40)
[2021-07-10 18:00] VITALS: BP 138/66
--- NOTE | 2021-07-10 18:20 | NUR ---
Problems reprioritized. Patient report given, questions answered & plan of care reviewed with MICHELLE Sharma.
--- NOTE | 2021-07-10 19:01 | NUR ---
I have received report from MICHELLE Madrid and had the opportunity to ask questions and assume patient care.
[2021-07-11] VITALS: BP 118/54
--- NOTE | 2021-07-11 00:57 | NUR ---
Dr Ordoñez came in and administered TPA through LUCIA drain. Med was not scanned, charge nurse Esperanza aware that the medication was given.
[2021-07-11] MEDS: HYDROcodone/acetaminophen 10/325mg tab PO PRN ×3 (02:46→13:55)
[2021-07-11 06:07] LABS: BASOPHILS # (AUTO) 0.1 X10'3 (0-0.2); EOSINOPHILS # (AUTO) 0.3 X10'3 (0-0.9); EOSINOPHILS % (AUTO) 3.8 % (0-6); HEMOGLOBIN 8.4 g/dl (12.0-16.0); LYMPHOCYTES # (AUTO) 2.2 X10'3 (1.1-4.8); WHITE BLOOD COUNT 8.6 X10'3 (4.5-11.0)
[2021-07-11 06:10] LABS: HEMATOCRIT 25.3 % (35.0-45.0); LYMPHOCYTES % (AUTO) 25.9 % (21-51); MEAN CORPUSCULAR HEMOGLOBIN 28.8 PG (27.0-31.0); MEAN CORPUSCULAR VOLUME 87.4 FL (78-98); MEAN PLATELET VOLUME 6.5 FL (7.4-10.4); MONOCYTES % (AUTO) 11.3 % (2-12); PLATELET COUNT 697 X10'3 (140-440); RED CELL DISTRIBUTION WIDTH 16.1 % (11.5-14.5)
--- NOTE | 2021-07-11 06:21 | NUR ---
Problems reprioritized. Patient report given, questions answered & plan of care reviewed with MICHELLE Valdez I agree with Meekermarsha colon Documention, assesments, and report given to MICHELLE Valdez.
--- NOTE | 2021-07-11 06:27 | NUR ---
Problems reprioritized. Patient report given, questions answered & plan of care reviewed with Courtney MARTINEZ.
--- NOTE | 2021-07-11 06:46 | NUR ---
Patient in room [facility] 349. I have received report from luis parry and had the opportunity to ask questions and assume patient care.
[2021-07-11 06:53] LABS: ALBUMIN 1.8 G/DL (3.4-5.0); ALBUMIN/GLOBULIN RATIO 0.5 (1.1-1.5); ALKALINE PHOSPHATASE 99 IU/L (46-116); ANION GAP 10 (8-16); ASPARTATE AMINO TRANSFERASE 10 U/L (10-37); BILIRUBIN,TOTAL 0.2 MG/DL (0.1-1.0); BLOOD UREA NITROGEN 13 MG/DL (7-18); BUN/CREATININE RATIO 15.3 (6.6-38.0); CALCIUM 8.6 MG/DL (8.5-10.1); CHLORIDE 108 MMOL/L (99-107); CREATININE 0.85 MG/DL (0.40-0.90); GLUCOSE 87 MG/DL (70-104); POTASSIUM 4.4 MMOL/L (3.5-5.1); SODIUM 141 MMOL/L (135-145); TOTAL CARBON DIOXIDE 23.2 MMOL/L (24-32); TOTAL PROTEIN 5.8 G/DL (6.4-8.2); eGFR 66 ML/MIN
[2021-07-11 07:00] VITALS: BP 146/64
[2021-07-11 07:06] LABS: ALANINE AMINOTRANSFERASE 7 U/L (12-78)
[2021-07-11] MEDS: docusate sod 100mg capsule PO SCH ×3 (08:00→20:24)
[2021-07-11] MEDS: HYDROchlorothiazide 12.5mg capsule PO SCH (09:01)
[2021-07-11] MEDS: magnesium oxide 400mg tablet PO SCH ×2 (09:01→20:22)
[2021-07-11] MEDS: piperacillin/tazo 3.375gm/50ml 50 ML IV SCH ×3 (09:01→23:30)
[2021-07-11] MEDS: metoprolol succinate 25mg (24-HOUR) SR. Tablet PO SCH ×2 (09:02→20:22)
[2021-07-11] MEDS: cholecalciferol (vitamin D3) 1,000 unit (25mcg) tablet PO SCH (09:02)
[2021-07-11] MEDS: amiodarone 200mg tablet PO SCH (09:03)
[2021-07-11] MEDS: losartan 50mg tablet PO SCH (09:04)
[2021-07-11] MEDS: atorvastatin 10mg tablet PO SCH (09:04)
[2021-07-11] MEDS: diatr meglu/diatrizoate 30ml oral sol.-(3 dose) bottle PO SCH ×3 (10:38→13:51)
[2021-07-11 12:00] VITALS: BP 128/53
[2021-07-11] MEDS ORDERED: iohexol 300mg/ml 100ml inj. ONE (14:46)
[2021-07-11] MEDS: normal saline 1000ml 1,000 ML IV SCH (15:58)
[2021-07-11 18:00] VITALS: BP 135/55
--- NOTE | 2021-07-11 19:01 | NUR ---
I have received report from MICHELLE Valdez and had the opportunity to ask questions and assume patient care.
--- NOTE | 2021-07-11 19:01 | NUR ---
Patient in room [facility] 349. I have received report from MICHELLE Valdez and had the opportunity to ask questions and assume patient care.
--- NOTE | 2021-07-11 19:02 | NUR ---
Patient in room [facility] 349. I have received report from MICHELLE Núñez and had the opportunity to ask questions and assume patient care.
--- NOTE | 2021-07-11 19:11 | NUR ---
Problems reprioritized. Patient report given, questions answered & plan of care reviewed with luis parry.
[2021-07-12] VITALS: BP 132/54
[2021-07-12] MEDS: HYDROcodone/acetaminophen 10/325mg tab PO PRN ×3 (02:05→13:10)
--- NOTE | 2021-07-12 06:17 | NUR ---
I agree with Student Maricruz's charting, med passes, and report given to MICHELLE Valdze
--- NOTE | 2021-07-12 06:17 | NUR ---
Problems reprioritized. Patient report given, questions answered & plan of care reviewed with MICHELLE Valdez.
--- NOTE | 2021-07-12 06:30 | NUR ---
Patient in room [facility] 349. I have received report from luis parry and had the opportunity to ask questions and assume patient care.
[2021-07-12 07:02] LABS: BASOPHILS # (AUTO) 0.1 X10'3 (0-0.2); EOSINOPHILS # (AUTO) 0.3 X10'3 (0-0.9); EOSINOPHILS % (AUTO) 3.5 % (0-6); HEMOGLOBIN 8.7 g/dl (12.0-16.0); MEAN PLATELET VOLUME 6.2 FL (7.4-10.4); MONOCYTES # (AUTO) 0.7 X10'3 (0-0.9)
[2021-07-12 07:07] LABS: BASOPHILS % (AUTO) 1.1 % (0-1); LYMPHOCYTES % (AUTO) 25.5 % (21-51); MEAN CORPUSCULAR HGB CONC 33.6 g/dL (33.0-36.5); MEAN CORPUSCULAR VOLUME 86.3 FL (78-98); MONOCYTES % (AUTO) 8.4 % (2-12); NEUTROPHILS # (AUTO) 4.8 X10'3 (1.8-7.7); NEUTROPHILS % (AUTO) 61.5 % (42-75); PLATELET COUNT 713 X10'3 (140-440); RED BLOOD COUNT 3.01 X10'6 (4.20-5.60); RED CELL DISTRIBUTION WIDTH 16.2 % (11.5-14.5); WHITE BLOOD COUNT 7.9 X10'3 (4.5-11.0)
[2021-07-12] MEDS: cholecalciferol (vitamin D3) 1,000 unit (25mcg) tablet PO SCH (07:09)
[2021-07-12] MEDS: piperacillin/tazo 3.375gm/50ml 50 ML IV SCH (07:10)
[2021-07-12] MEDS: magnesium oxide 400mg tablet PO SCH (07:11)
[2021-07-12] MEDS: HYDROchlorothiazide 12.5mg capsule PO SCH (07:11)
[2021-07-12] MEDS: atorvastatin 10mg tablet PO SCH (07:12)
[2021-07-12] MEDS: losartan 50mg tablet PO SCH (07:14)
[2021-07-12] MEDS: amiodarone 200mg tablet PO SCH (07:14)
[2021-07-12 07:19] LABS: ALANINE AMINOTRANSFERASE 11 U/L (12-78); ALBUMIN/GLOBULIN RATIO 0.5 (1.1-1.5); ALKALINE PHOSPHATASE 118 IU/L (46-116); ANION GAP 3 (8-16); ASPARTATE AMINO TRANSFERASE 12 U/L (10-37); BILIRUBIN,TOTAL 0.3 MG/DL (0.1-1.0); BLOOD UREA NITROGEN 14 MG/DL (7-18); BUN/CREATININE RATIO 15.4 (6.6-38.0); CALCIUM 8.8 MG/DL (8.5-10.1); CHLORIDE 108 MMOL/L (99-107); CREATININE 0.91 MG/DL (0.40-0.90); GLUCOSE 85 MG/DL (70-104); SODIUM 138 MMOL/L (135-145); TOTAL CARBON DIOXIDE 27.3 MMOL/L (24-32); eGFR 61 ML/MIN
[2021-07-12] MEDS: normal saline 1000ml 1,000 ML IV SCH (07:20)
[2021-07-12] MEDS: docusate sod 100mg capsule PO SCH (07:28)
[2021-07-12] MEDS: metoprolol succinate 25mg (24-HOUR) SR. Tablet PO SCH (07:28)
[2021-07-12 07:57] LABS: ANISOCYTOSIS 1+; PLATELET ESTIMATE INCREASED; TOTAL CELLS COUNTED 100
[2021-07-12 07:58] LABS: POLYCHROMASIA FEW
[2021-07-12 08:30] VITALS: BP 141/55
[2021-07-12 12:00] VITALS: BP 147/49
[2021-07-12] MEDS ORDERED: LEVO750T46 PO (13:17)
--- NOTE | 2021-07-12 15:40 | NUR ---
pt discharged at 1540 with son to home. belongings sent with pt. iv removed, pressure bandage applied, no complications. pt educated on discharge instructions. pt discharged in stable condition.
[2021-07-12] MEDS ORDERED: lactobacillus rhamnosus 10,000 MMU CELLS/CAPSULE PO SCH (20:00)
== END 2021-07-12 15:48 | disposition home or self-care (01) | DRG 372 ==
LOC: ER 09:55 → ED HOLD 13:36 → SUR 3N 23:05
PROVIDERS: ADMIT Family Medicine; ATTEND Family Medicine
PROC: 3E1M38Z Irrigation of Peritoneal Cavity using Irrigating Substance, Percutaneous Approach (ICD-10-PCS; principal; 2021-07-09)
PROC: 30233N1 Transfusion of Nonautologous Red Blood Cells into Peripheral Vein, Percutaneous Approach (ICD-10-PCS; 2021-07-09)
PROC: BW211ZZ Computerized Tomography (CT Scan) of Abdomen and Pelvis using Low Osmolar Contrast (ICD-10-PCS; 2021-07-09)
PROC: 3E1M38Z Irrigation of Peritoneal Cavity using Irrigating Substance, Percutaneous Approach (ICD-10-PCS; 2021-07-10)
PROC: BW211ZZ Computerized Tomography (CT Scan) of Abdomen and Pelvis using Low Osmolar Contrast (ICD-10-PCS; 2021-07-11)
DX: K65.1 Peritoneal abscess (principal); E87.1 Hypo-osmolality and hyponatremia; I48.20 Chronic atrial fibrillation, unspecified; D64.9 Anemia, unspecified; E78.00 Pure hypercholesterolemia, unspecified; E78.5 Hyperlipidemia, unspecified; G89.4 Chronic pain syndrome; Y83.8 Other surgical procedures as the cause of abnormal reaction of the patient, or of later complication, without mention of misadventure at the time of the procedure; B96.5 Pseudomonas (aeruginosa) (mallei) (pseudomallei) as the cause of diseases classified elsewhere; B96.1 Klebsiella pneumoniae [K. pneumoniae] as the cause of diseases classified elsewhere; I10 Essential (primary) hypertension; Z79.899 Other long term (current) drug therapy; Z90.49 Acquired absence of other specified parts of digestive tract; Z79.01 Long term (current) use of anticoagulants; Z90.710 Acquired absence of both cervix and uterus; Z98.84 Bariatric surgery status; Y92.89 Other specified places as the place of occurrence of the external cause
CPT/HCPCS: 36415; 36430; 71045; 74177; 80053; 81001; 83605; 84145; 85007; 85008; 85025; 86885; 86900; 86901; 86920; 87040; 87070; 87077; 87081; 87186; 93005; 96365; 96366; 96368; 96375; 99291; G0378; J2270; J2543; J3370; J7030; P9016; Q9963; Q9967

== ENCOUNTER 2021-07-21 17:54 | Emergency (ER) | payer MEDICARE, BC ==
[~2021-07-21] VITALS: Ht 170.2 cm; Wt 86.4 kg
[~2021-07-21 17:54] MED LIST changes: +APIX5TAB3 PO; -ASCO500T20 PO; -FERR325T29 PO; +LEVO750T46 PO; -POTA20TA19 PO; +SIMV-42 PO
[2021-07-21 18:48] VITALS: BP 134/54
[2021-07-22 00:09] LABS: BASOPHILS # (AUTO) 0.1 X10'3 (0-0.2); BASOPHILS % (AUTO) 1.6 % (0-1); EOSINOPHILS # (AUTO) 0.2 X10'3 (0-0.9); EOSINOPHILS % (AUTO) 3.9 % (0-6); HEMATOCRIT 30.1 % (35.0-45.0); HEMOGLOBIN 10.1 g/dl (12.0-16.0); LYMPHOCYTES # (AUTO) 1.3 X10'3 (1.1-4.8); LYMPHOCYTES % (AUTO) 24.4 % (21-51); MEAN CORPUSCULAR HEMOGLOBIN 29.6 PG (27.0-31.0); MEAN CORPUSCULAR HGB CONC 33.6 g/dL (33.0-36.5); MEAN CORPUSCULAR VOLUME 88.2 FL (78-98); MONOCYTES # (AUTO) 0.5 X10'3 (0-0.9); MONOCYTES % (AUTO) 9.3 % (2-12); NEUTROPHILS # (AUTO) 3.3 X10'3 (1.8-7.7); NEUTROPHILS % (AUTO) 60.8 % (42-75); PLATELET COUNT 422 X10'3 (140-440); RED BLOOD COUNT 3.42 X10'6 (4.20-5.60); RED CELL DISTRIBUTION WIDTH 19.8 % (11.5-14.5); WHITE BLOOD COUNT 5.5 X10'3 (4.5-11.0)
[2021-07-22 00:19] LABS: ALANINE AMINOTRANSFERASE 26 U/L (12-78); ALBUMIN 3.1 G/DL (3.4-5.0); ALBUMIN/GLOBULIN RATIO 0.7 (1.1-1.5); ALKALINE PHOSPHATASE 168 IU/L (46-116); ANION GAP 8 (8-16); ASPARTATE AMINO TRANSFERASE 23 U/L (10-37); BILIRUBIN,DIRECT 0.1 MG/DL (0-0.3); BILIRUBIN,TOTAL 0.4 MG/DL (0.1-1.0); BLOOD UREA NITROGEN 8 MG/DL (7-18); BUN/CREATININE RATIO 8.3 (6.6-38.0); CALCIUM 9.2 MG/DL (8.5-10.1); CHLORIDE 103 MMOL/L (99-107); CREATININE 0.96 MG/DL (0.40-0.90); GLUCOSE 100 MG/DL (70-104); LIPASE 97 U/L (73-393); POTASSIUM 3.7 MMOL/L (3.5-5.1); SODIUM 138 MMOL/L (135-145); TOTAL CARBON DIOXIDE 27.1 MMOL/L (24-32); TOTAL PROTEIN 7.4 G/DL (6.4-8.2); eGFR 57 ML/MIN
[2021-07-22 00:36] LABS: ANISOCYTOSIS 2+; PLATELET ESTIMATE NORMAL
[2021-07-22 00:42] LABS: POLYCHROMASIA FEW
== END 2021-07-22 01:31 | disposition home or self-care (01) ==
LOC: ER 17:55
DX: K91.89 Other postprocedural complications and disorders of digestive system (principal); E78.00 Pure hypercholesterolemia, unspecified; I10 Essential (primary) hypertension; G89.29 Other chronic pain; Z90.49 Acquired absence of other specified parts of digestive tract; Z98.84 Bariatric surgery status; Z79.899 Other long term (current) drug therapy; Z79.2 Long term (current) use of antibiotics; Y83.8 Other surgical procedures as the cause of abnormal reaction of the patient, or of later complication, without mention of misadventure at the time of the procedure; Y73.3 Surgical instruments, materials and gastroenterology and urology devices (including sutures) associated with adverse incidents; Y92.89 Other specified places as the place of occurrence of the external cause
CPT/HCPCS: 36415; 76700; 80048; 80076; 83690; 85008; 85025; 99284

== ENCOUNTER 2021-12-09 06:04 | Day surgery (SDC) | payer MEDICARE, BC ==
[2021-12-08 15:05] LABS: BASOPHILS # (AUTO) 0.1 X10'3 (0-0.2); BASOPHILS % (AUTO) 1.6 % (0-1); EOSINOPHILS # (AUTO) 0.1 X10'3 (0-0.9); EOSINOPHILS % (AUTO) 1.7 % (0-6); HEMATOCRIT 30.6 % (35.0-45.0); HEMOGLOBIN 9.7 g/dl (12.0-16.0); LYMPHOCYTES # (AUTO) 1.7 X10'3 (1.1-4.8); LYMPHOCYTES % (AUTO) 36.5 % (21-51); MEAN CORPUSCULAR HEMOGLOBIN 28.4 PG (27.0-31.0); MEAN CORPUSCULAR HGB CONC 31.8 g/dL (33.0-36.5); MEAN CORPUSCULAR VOLUME 89.1 FL (78-98); MEAN PLATELET VOLUME 8.3 FL (7.4-10.4); MONOCYTES # (AUTO) 0.5 X10'3 (0-0.9); MONOCYTES % (AUTO) 11.1 % (2-12); NEUTROPHILS # (AUTO) 2.3 X10'3 (1.8-7.7); NEUTROPHILS % (AUTO) 49.1 % (42-75); PLATELET COUNT 286 X10'3 (140-440); RED BLOOD COUNT 3.43 X10'6 (4.20-5.60); RED CELL DISTRIBUTION WIDTH 17.3 % (11.5-14.5); WHITE BLOOD COUNT 4.7 X10'3 (4.5-11.0)
[2021-12-08 15:18] LABS: ALBUMIN 3.7 G/DL (3.4-5.0); ANION GAP 7 (8-16); APTT 24 SECONDS (22-32); BLOOD UREA NITROGEN 18 MG/DL (7-18); BUN/CREATININE RATIO 16.8 (6.6-38.0); CALCIUM 9.4 MG/DL (8.5-10.1); CHLORIDE 105 MMOL/L (99-107); CREATININE 1.07 MG/DL (0.40-0.90); GLUCOSE 89 MG/DL (70-104); POTASSIUM 4.2 MMOL/L (3.5-5.1); SODIUM 142 MMOL/L (135-145); TOTAL CARBON DIOXIDE 30.4 MMOL/L (24-32); eGFR 51 ML/MIN
[~2021-12-09] VITALS: Ht 170.2 cm; Wt 91.2 kg
[2021-12-09] VITALS (11 sets, daily range): BP systolic 122–148; BP diastolic 41–65
[~2021-12-09 06:04] MED LIST changes: -MAGN500C16 PO; +MAGN500C4 PO
[2021-12-09] MEDS ORDERED: normal saline 1000ml 1,000 ML IV SCH (06:25)
[2021-12-09] MEDS ORDERED: ceFAZolin 2gm in dextrose, iso 50 ML IV ONE ×2 (06:25→08:00)
[2021-12-09] MEDS ORDERED: ATOR20TA66 PO (06:36)
[2021-12-09] MEDS ORDERED: Stool Softener PO (06:38)
[2021-12-09] MEDS ORDERED: ASPI-1071 PO (06:38)
[2021-12-09] MEDS ORDERED: LIDOcaine 1% w/EPI 1:100,000 30ml vial (MDV) ONE (07:32)
[2021-12-09] MEDS ORDERED: fentaNYL/PF 50MCG/1 ML 2ML syringe ONE (07:33)
[2021-12-09] MEDS ORDERED: midazolam 1 mg/ML 2ml injection ONE ×2 (07:33→08:57)
[2021-12-09] MEDS ORDERED: ceFAZolin 1000mg inj ONE (07:33)
[2021-12-09] MEDS ORDERED: HYDROcodone/acetaminophen 10/325mg tab PO PRN (10:15)
[2021-12-09] MEDS ORDERED: HYDROcodone/acetaminophen 5mg/325mg tablet PO PRN (10:15)
[2021-12-09] MEDS ORDERED: VANCOMYCIN 1GM/200ML IVPB 200 ML IV ONE (11:00)
[2021-12-09] MEDS ORDERED: cefazolin/dext.iso 2gm/50ml 50 ML IV SCH (16:00)
== END 2021-12-09 16:15 | disposition home or self-care (01) ==
LOC: SSTAY O 06:04
PROVIDERS: ATTEND Internal Medicine Cardiovascular Disease
DX: I49.5 Sick sinus syndrome (principal); I10 Essential (primary) hypertension; E78.5 Hyperlipidemia, unspecified; I25.10 Atherosclerotic heart disease of native coronary artery without angina pectoris; Z79.899 Other long term (current) drug therapy; Z79.01 Long term (current) use of anticoagulants
CPT/HCPCS: 33208; 36415; 71046; 80048; 85025; 85610; 85730; 93005; 99152; 99153; C1785; C1894; C1898; J0690; J2250; J3010; J3490; A4565; A4620; A6258; A6449

== ENCOUNTER 2022-11-18 05:41 | Day surgery (SDC) | payer MEDICARE, BC ==
[2022-11-11 16:14] LABS: BASOPHILS # (AUTO) 0.1 X10'3 (0-0.2); BASOPHILS % (AUTO) 1.8 % (0-1); EOSINOPHILS # (AUTO) 0.1 X10'3 (0-0.9); LYMPHOCYTES # (AUTO) 1.9 X10'3 (1.1-4.8); LYMPHOCYTES % (AUTO) 34.6 % (21-51); MEAN CORPUSCULAR HEMOGLOBIN 25.4 PG (27.0-31.0); MEAN CORPUSCULAR HGB CONC 30.6 g/dL (33.0-36.5); MEAN PLATELET VOLUME 7.5 FL (7.4-10.4); MONOCYTES # (AUTO) 0.6 X10'3 (0-0.9); MONOCYTES % (AUTO) 11.2 % (2-12); NEUTROPHILS # (AUTO) 2.7 X10'3 (1.8-7.7); NEUTROPHILS % (AUTO) 51.4 % (42-75); PRE OP HEMATOCRIT 33.2 % (35.0-45.0); PRE OP PLATELET COUNT 361 X10'3 (140-440); RED CELL DISTRIBUTION WIDTH 16.6 % (11.5-14.5)
[2022-11-11 16:18] LABS: PRE OP HEMOGLOBIN 10.2 g/dL (12.0-16.0)
[2022-11-11 16:23] LABS: CLARITY,URINE CLEAR (Clear); COLOR,URINE YELLOW (Yellow); GLUCOSE, URINE NEGATIVE (Neg); KETONES,URINE NEGATIVE (Neg); LEUKOCYTE ESTERASE ,URINE NEGATIVE (Neg); NITRITES, URINE NEGATIVE (Neg); OCCULT BLOOD,URINE NEGATIVE (Neg); PROTEIN,URINE NEGATIVE (Neg); UROBILINOGEN,URINE 0.2 E.U/dL (0.2-1.0)
[2022-11-11 16:24] LABS: ALBUMIN 4.3 G/DL (3.4-5.0); ALBUMIN/GLOBULIN RATIO 1.3 (1.1-1.5); ALKALINE PHOSPHATASE 61 IU/L (46-116); BLOOD UREA NITROGEN 9 MG/DL (7-18); BUN/CREATININE RATIO 9.1 (6.6-38.0); CALCIUM 9.9 MG/DL (8.5-10.1); CHLORIDE 100 MMOL/L (99-107); CREATININE 0.99 MG/DL (0.40-0.90); PRE OP ALT 24 U/L (30-65); PRE OP ANION GAP 5 (8-16); PRE OP AST 25 U/L (10-37); PRE OP BILIRUB, TOTAL 0.4 MG/DL (0.0-1.0); PRE OP GLUCOSE 93 MG/DL (70-104); PRE OP POTASSIUM 3.9 MMOL/L (3.4-5.1); PRE OP SODIUM 135 MMOL/L (135-145); TOTAL CARBON DIOXIDE 30.1 MMOL/L (24-32); TOTAL PROTEIN 7.5 G/DL (6.4-8.2); eGFR 55 ML/MIN
[2022-11-11 16:29] LABS: UA COLLECTION TYPE CLN CATCH MIDSTREAM
[~2022-11-18] VITALS: Ht 162.6 cm; Wt 100.4 kg
[2022-11-18] VITALS (16 sets, daily range): BP systolic 137–190; BP diastolic 71–89
--- NOTE | 2022-11-18 05:30 | NUR ---
CSM: PEDAL PULSES PRESENT AND MARKED. PATIENT USED MUPIROCIN CREAM. EDUCATED PATIENT ON THE USE OF THE INCENTIVE SPIROMETER AND ITS IMPORTANCE.
[~2022-11-18 05:41] MED LIST changes: +ASPI-1071 PO; +ATOR20TA66 PO; -DOCU100C40 PO; +DOCU50CA13 PO; +DOCUMENT DATE & TIME OF BETA-BLOCKER PO ONE; -HYDR12.55 PO; -LEVO750T46 PO; -LOSA100T57 PO; +LOSA1TAB39 PO; -SIMV-42 PO; +ceFAZolin inj. 2,000 MG in dextrose 5%-water 100 ML IV ONE; +famotidine 20mg tablet PO ONE; +ringers solution, lacted 1,000 ML IV SCH
[2022-11-18] MEDS ORDERED: BUPIVAcaine 0.5% inj/PF 30 ML ONE (07:48)
[2022-11-18] MEDS ORDERED: bacitracin 15gm ointment TP ONE (07:48)
[2022-11-18] MEDS ORDERED: fentaNYL/PF 50MCG/1 ML 2ML syringe ONE (08:24)
[2022-11-18] MEDS ORDERED: midazolam 1 mg/ML 2ml injection ONE (08:25)
[2022-11-18] MEDS ORDERED: sevoflurane 250ml liquid IH ONE (08:25)
[2022-11-18] MEDS ORDERED: neostigmine methylsulfate 1 MG/ML 10ml vial ONE (08:27)
[2022-11-18] MEDS ORDERED: dexamethasone sod phosphate 4mg/ml inj. ONE (08:27)
[2022-11-18] MEDS ORDERED: rocuronium 10mg/ml inj IV ONE (08:27)
[2022-11-18] MEDS ORDERED: glycopyrrolate 0.2mg/ml inj ONE (08:27)
[2022-11-18] MEDS ORDERED: propofol inj 20 ML IV ONE (08:27)
[2022-11-18] MEDS ORDERED: ondansetron/PF 4mg/2ml inj ONE (08:27)
[2022-11-18] MEDS ORDERED: morphine 2 MG/ML inj. syringe IV PRN (08:55)
[2022-11-18] MEDS ORDERED: labetalol 20mg/4ml (5mg/ml) syringe IV PRN (08:55)
[2022-11-18] MEDS ORDERED: fentaNYL/PF 50MCG/1 ML 2ML syringe IV PRN (08:55)
[2022-11-18] MEDS ORDERED: ringers solution, lacted 1,000 ML IV SCH (08:55)
[2022-11-18] MEDS ORDERED: ondansetron/PF 4mg/2ml inj IV PRN (08:55)
[2022-11-18] MEDS ORDERED: BUPIVAcaine 0.5% inj/PF 30 ml vial IJ ONE (09:00)
[2022-11-18] MEDS ORDERED: BUPIVACAINE liposomal/PF 13.3 MG/ML vial IM ONE (09:25)
[2022-11-18] MEDS ORDERED: BUPIVAcaine/PF 5 mg/ml 10ml ONE (09:25)
[2022-11-18] MEDS ORDERED: bacitracin/polymyxin B 15 GM ointment TP ONE (09:34)
--- NOTE | 2022-11-18 09:56 | NUR ---
Received from OR via [facility] , accompanied by Anesthesiologist and report given by GUERDA Anesthesiologist. PATIENT WAKING UP, SEVERE ABDOMINAL PAIN-WILL MEDICATE, V/S WNL, PIV 20G LEFT FOREARM, ABDOMEN DRESSING C/D/I. Addendum: 11/18/22 at 1045 by Bala Perez RN Amended: Links added.
[2022-11-18] MEDS: morphine 4 MG/ML inj SYRINge IV PRN ×2 (10:03→10:34)
[2022-11-18] MEDS: fentaNYL/PF 50MCG/1 ML 2ML syringe IV PRN ×2 (10:14→10:22)
[2022-11-18] MEDS: hydrALAZINE 20mg/ml inj. IV PRN ×2 (11:01→11:18)
--- NOTE | 2022-11-18 11:56 | NUR ---
ALL DISCHARGE CRITERIA HAS BEEN MET. VSS, PAIN AT A TOLERABLE LEVEL, VOIDING AND ABLE TO SAFELY AMBULATE AND TRANSFER SELF. IV TAKEN OUT WITHOUT ANY COMPLICATIONS. ALL DISCHARGE INSTRUCTIONS COVERED WITH PATIENT AND ALL QUESTIONS ANSWERED. PATIENT TAKEN OUT VIA WHEELCHAIR WITH ALL BELONGINGS TO PERSONAL VEHICLE WHERE FAMILY DROVE PATIENT HOME. Addendum: 11/18/22 at 1227 by Bala Perez RN Amended: Links added.
== END 2022-11-18 11:56 | disposition home or self-care (01) ==
LOC: PAS 05:41
PROVIDERS: ATTEND Surgery
DX: K43.2 Incisional hernia without obstruction or gangrene (principal); I12.9 Hypertensive chronic kidney disease with stage 1 through stage 4 chronic kidney disease, or unspecified chronic kidney disease; N18.30 Chronic kidney disease, stage 3 unspecified; I48.91 Unspecified atrial fibrillation; I25.10 Atherosclerotic heart disease of native coronary artery without angina pectoris; I47.1 Supraventricular tachycardia; D64.9 Anemia, unspecified; E78.5 Hyperlipidemia, unspecified; G90.50 Complex regional pain syndrome I, unspecified; M19.90 Unspecified osteoarthritis, unspecified site; Z85.820 Personal history of malignant melanoma of skin; Z95.0 Presence of cardiac pacemaker; Z98.84 Bariatric surgery status; Z90.49 Acquired absence of other specified parts of digestive tract; Z98.890 Other specified postprocedural states; Z96.651 Presence of right artificial knee joint; Z87.891 Personal history of nicotine dependence; Z79.01 Long term (current) use of anticoagulants; Z79.82 Long term (current) use of aspirin; Z79.899 Other long term (current) drug therapy; Z90.710 Acquired absence of both cervix and uterus; Z80.41 Family history of malignant neoplasm of ovary; Z82.49 Family history of ischemic heart disease and other diseases of the circulatory system
CPT/HCPCS: 36415; 49613; 64488; 80053; 81003; 82948; 85025; 93005; C9290; J0360; J0690; J1100; J2250; J2270; J2405; J2704; J2710; J3010; J3490; J7030; J7060; J7120; S0020; Z7506; Z7508; Z7512; A4618; A7000

== ENCOUNTER 2023-04-15 05:53 | Inpatient (IN) | payer MEDICARE, BC ==
[2023-04-09 15:50] LABS: CLARITY,URINE CLEAR (Clear); COLOR,URINE YELLOW (Yellow); GLUCOSE, URINE NEGATIVE (Neg); KETONES,URINE NEGATIVE (Neg); LEUKOCYTE ESTERASE ,URINE NEGATIVE (Neg); NITRITES, URINE NEGATIVE (Neg); OCCULT BLOOD,URINE NEGATIVE (Neg); PROTEIN,URINE NEGATIVE (Neg); UROBILINOGEN,URINE 0.2 E.U/dL (0.2-1.0)
[2023-04-09 15:51] LABS: UA COLLECTION TYPE NON-SPECIFIED
[2023-04-09 15:52] LABS: BASOPHILS # (AUTO) 0.1 X10'3 (0-0.2); BASOPHILS % (AUTO) 1.3 % (0-1); EOSINOPHILS % (AUTO) 0.9 % (0-6); LYMPHOCYTES # (AUTO) 1.8 X10'3 (1.1-4.8); LYMPHOCYTES % (AUTO) 33.3 % (21-51); MEAN CORPUSCULAR HEMOGLOBIN 35.9 PG (27.0-31.0); MEAN CORPUSCULAR HGB CONC 33.3 g/dL (33.0-36.5); MEAN CORPUSCULAR VOLUME 107.7 FL (78-98); MEAN PLATELET VOLUME 7.9 FL (7.4-10.4); MONOCYTES # (AUTO) 0.5 X10'3 (0-0.9); MONOCYTES % (AUTO) 9.3 % (2-12); NEUTROPHILS # (AUTO) 2.9 X10'3 (1.8-7.7); NEUTROPHILS % (AUTO) 55.2 % (42-75); PRE OP HEMATOCRIT 36.9 % (35.0-45.0); PRE OP HEMOGLOBIN 12.3 g/dL (12.0-16.0); PRE OP PLATELET COUNT 275 X10'3 (140-440); RED BLOOD COUNT 3.43 X10'6 (4.20-5.60); RED CELL DISTRIBUTION WIDTH 14.7 % (11.5-14.5)
[2023-04-09 16:02] LABS: ALBUMIN 4.3 G/DL (3.4-5.0); ALBUMIN/GLOBULIN RATIO 1.7 (1.1-1.5); ALKALINE PHOSPHATASE 65 IU/L (46-116); BLOOD UREA NITROGEN 12 MG/DL (7-18); BUN/CREATININE RATIO 9.8 (10.0-20.0); CHLORIDE 100 MMOL/L (99-107); CREATININE 1.22 MG/DL (0.40-0.90); PRE OP ALT 28 U/L (30-65); PRE OP ANION GAP 9 (8-16); PRE OP AST 23 U/L (10-37); PRE OP BILIRUB, TOTAL 0.6 MG/DL (0.0-1.0); PRE OP GLUCOSE 92 MG/DL (70-104); PRE OP POTASSIUM 3.4 MMOL/L (3.4-5.1); PRE OP SODIUM 137 MMOL/L (135-145); TOTAL CARBON DIOXIDE 28.5 MMOL/L (24-32); TOTAL PROTEIN 6.9 G/DL (6.4-8.2); eGFR 43 ML/MIN
[~2023-04-15] VITALS: Ht 170.2 cm; Wt 94.5 kg
[2023-04-15] VITALS (52 sets, daily range): BP systolic 90–175; BP diastolic 45–84; PULSE 57–90; RESP 10–21; TEMP 96.8–98.4; O2SAT 94–100
[~2023-04-15 05:53] MED LIST changes: +AMI200T PO; -AMIO200T61 PO; +OXYB5TAB16 PO; -ceFAZolin inj. 2,000 MG in dextrose 5%-water 100 ML IV ONE; +ceFOXitin 2GM-NS 100mL ADDvant 100 ML IV ONE
[2023-04-15] MEDS ORDERED: vasoPRESSIN 20 units/ml inj. ONE (07:11)
[2023-04-15] MEDS ORDERED: clindamycin phosphate 40gm vag cream ONE ×3 (07:11→14:05)
[2023-04-15] MEDS ORDERED: sevoflurane 250ml liquid IH ONE ×2 (07:24→13:52)
[2023-04-15] MEDS ORDERED: midazolam 1 mg/ML 2ml injection ONE (07:25)
[2023-04-15] MEDS ORDERED: rocuronium 10mg/ml inj IV ONE (07:26)
[2023-04-15] MEDS ORDERED: propofol inj 20 ML IV ONE ×2 (07:26→13:50)
[2023-04-15] MEDS ORDERED: fentaNYL /PF 50mcg/ml 5ml ampule ONE (07:26)
[2023-04-15] MEDS ORDERED: ringers solution, lacted 1,000 ML IV SCH (08:15)
[2023-04-15] MEDS ORDERED: meperidine/PF 25mg/ml syringe IV PRN ×2 (08:15)
[2023-04-15] MEDS ORDERED: proCHLORperazine 10 MG/2 ml inj IV PRN (08:15)
[2023-04-15] MEDS ORDERED: morphine 2 MG/ML inj. syringe IV PRN (08:15)
[2023-04-15] MEDS ORDERED: ondansetron/PF 4mg/2ml inj IV PRN ×2 (08:15→09:30)
[2023-04-15] MEDS ORDERED: dexamethasone sod phosphate 4mg/ml inj. ONE (09:09)
[2023-04-15] MEDS ORDERED: ondansetron/PF 4mg/2ml inj ONE (09:09)
[2023-04-15] MEDS ORDERED: glycopyrrolate 0.2mg/ml inj ONE (09:11)
[2023-04-15] MEDS ORDERED: neostigmine methylsulfate 1 MG/ML 10ml vial ONE (09:11)
[2023-04-15] MEDS ORDERED: ketorolac trometh. 30mg/ml inj. IV PRN (09:30)
[2023-04-15] MEDS ORDERED: magnesium hydroxide 30ml (MOM) UD suspension PO PRN (09:30)
[2023-04-15] MEDS ORDERED: HYDROcodone/acetaminophen 10/325mg tab PO PRN (09:30)
[2023-04-15] MEDS ORDERED: LORazepam 2 mg/ml vial IV PRN (09:30)
[2023-04-15] MEDS ORDERED: temazepam 15mg capsule PO PRN (09:30)
[2023-04-15] MEDS ORDERED: normal saline 500ml IV soln 500 ML IV PRN (09:30)
[2023-04-15] MEDS ORDERED: metoclopramide 5 mg/ml inj IV PRN (09:30)
[2023-04-15] MEDS: ringers solution, lacted 1,000 ML IV SCH ×2 (09:30→17:30)
[2023-04-15] MEDS ORDERED: diphenhydrAMINE 50 mg/ml inj IV PRN (09:30)
--- NOTE | 2023-04-15 09:36 | NUR ---
Received from OR via [facility], accompanied by Anesthesiologist and report given by Anesthesiologist, TRAVIS. PATIENT WAKING UP, NO S/S OF PAIN, V/S WNL, SCD ON, 20G TO LUE, F/C IN PLACE WITH INTERNAL VAGINAL PACKING W/ NO S/S OF COMPLICATIONS
[2023-04-15] MEDS: meperidine/PF 25mg/ml syringe IV PRN ×2 (10:01→12:22)
[2023-04-15] MEDS: morphine 4 MG/ML inj SYRINge IV PRN ×2 (10:50→13:19)
[2023-04-15] MEDS: HYDROcodone/acetaminophen 10/325mg tab PO PRN ×2 (11:20→23:02)
--- NOTE | 2023-04-15 12:55 | NUR ---
1255 PATIENT EXPERIENCED HEAVY VAGINA BLEEDING DURING TRANSFER TO ORTHO UNIT AND NOTIFIED DR. DOUGLAS. TOV TO CHANGE PERIPAD AND MD WILL VISIT PATIENT IN PACU. 1320 MD AT BEDSIDE WITH OR NURSE TO REPLACE VAGINAL PACKING. 1330 APPLIED NEW PERIPAD. NO S/S OF BLEEDING AT THIS TIME. 1340 PERIPAD WAS SATURATED AND RN NOTIFIED MD. 1345 MD AT BEDSIDE AND INSTRUCTED TO BRING PATIENT BACK TO OR. RN NOTIFIED VERA (SON).
[2023-04-15] MEDS ORDERED: fentaNYL/PF 50MCG/1 ML 2ML syringe ONE (13:50)
--- NOTE | 2023-04-15 13:55 | NUR ---
PATIENT TRANSFERRED TO OR. VSS. REPORT GIVEN TO OR NURSE.
[2023-04-15] MEDS ORDERED: clindamycin phosphate 40gm vag cream VG ONE (14:23)
--- NOTE | 2023-04-15 14:34 | NUR ---
Received from OR via [facility], accompanied by Anesthesiologist and report given by TRAVIS Anesthesiologist. PATIENT WAKING UP, NO S/S OF PAIN, V/S WNL, SCD ON, 20G TO LEFT AC, DAVID PAD IS C/D/I. PT RESTING COMFORTABLY. WILL CONTINUE TO ASSESS. HAMILTON CATHETER DRAINING CLEAR YELLOW URINE.
--- NOTE | 2023-04-15 16:04 | NUR ---
ALL DISCHARGE CRITERIA HAS BEEN MET. VSS, PAIN AT A TOLERABLE LEVEL, ABLE TO SAFELY AMBULATE AND TRANSFER SELF. IV TAKEN OUT WITHOUT ANY COMPLICATIONS. ALL DISCHARGE INSTRUCTIONS COVERED WITH PATIENT AND ALL QUESTIONS ANSWERED. PATIENT TAKEN OUT VIA WHEELCHAIR WITH ALL BELONGINGS TO PERSONAL VEHICLE WHERE FAMILY DROVE PATIENT HOME. Addendum: 04/15/23 at 1614 by Bala Perez RN Amended: Links added. Addendum: 04/15/23 at 1616 by Bala Perez RN DELETED THIS NOTE. WRONG ENTRY.
--- NOTE | 2023-04-15 16:44 | NUR ---
PATIENT HAS MET ALL CRITERIA FOR TRANSFER TO ORTHO FLOOR. VSS. DRESSINGS INTACT. BED LOW, CALL LIGHT PRESENT AND 2 RAILS UP. RN PRESENT TO ACCEPT CARE OF PATIENT AND REPORT HAS BEEN CALLED. ALL QUESTIONS ANSWERED TO ACCEPTING RN. Addendum: 04/15/23 at 1653 by Bala Perez RN Amended: Links added.
--- NOTE | 2023-04-15 18:25 | NUR ---
Problems reprioritized. Patient report given, questions answered & plan of care reviewed with Kathi.
--- NOTE | 2023-04-15 19:01 | NUR ---
Patient in room ORTHO 4009. I have received report from MICHELLE Gallardo and had the opportunity to ask questions and assume patient care.
[2023-04-15] MEDS: docusate sod 100mg capsule PO SCH (20:02)
[2023-04-15] MEDS ORDERED: metoprolol succinate 25mg (24-HOUR) SR. Tablet PO ONE (20:20)
--- NOTE | 2023-04-15 22:05 | NUR ---
Held off on metoprolol 12.5 due to patients BP being 90/43 on the automatic BP machine. Re-assessed BP manually 104/56. HR: 60. Patient is alert and oriented to person, place, and time. Minimal dry blood noted on pad. Patient denies any discomfort. Notified charge nurse of findings.
[2023-04-16] VITALS (7 sets, daily range): BP systolic 96–131; BP diastolic 46–58; PULSE 60–64; RESP 15–18; TEMP 96.2–99.3; O2SAT 94–98
[2023-04-16] MEDS: ringers solution, lacted 1,000 ML IV SCH ×4 (01:30→23:39)
--- NOTE | 2023-04-16 03:29 | NUR ---
Agree with RV SERVICE TECHNICIAN assessment except where I documented my findings.
[2023-04-16] MEDS: HYDROcodone/acetaminophen 10/325mg tab PO PRN ×4 (03:59→22:14)
--- NOTE | 2023-04-16 06:00 | NUR ---
Removed the packing, and FC. Gauze was intact. Minimal bleeding noted. Pad placed to collect any drainage
--- NOTE | 2023-04-16 06:42 | NUR ---
Problems reprioritized. Patient report given, questions answered & plan of care reviewed with MICHELLE Whitfield.
[2023-04-16 07:02] LABS: BASOPHILS % (AUTO) 0 % (0-1); EOSINOPHILS % (AUTO) 0 % (0-6); HEMATOCRIT 28.9 % (35.0-45.0); HEMOGLOBIN 9.8 g/dl (12.0-16.0); LYMPHOCYTES # (AUTO) 0.7 X10'3 (1.1-4.8); LYMPHOCYTES % (AUTO) 8.2 % (21-51); MEAN CORPUSCULAR HEMOGLOBIN 36.3 PG (27.0-31.0); MEAN CORPUSCULAR HGB CONC 33.8 g/dL (33.0-36.5); MEAN CORPUSCULAR VOLUME 107.3 FL (78-98); MEAN PLATELET VOLUME 8.1 FL (7.4-10.4); MONOCYTES # (AUTO) 0.7 X10'3 (0-0.9); MONOCYTES % (AUTO) 8.6 % (2-12); NEUTROPHILS # (AUTO) 7.1 X10'3 (1.8-7.7); NEUTROPHILS % (AUTO) 83.2 % (42-75); PLATELET COUNT 212 X10'3 (140-440); RED BLOOD COUNT 2.69 X10'6 (4.20-5.60); RED CELL DISTRIBUTION WIDTH 13.6 % (11.5-14.5); WHITE BLOOD COUNT 8.6 X10'3 (4.5-11.0)
[2023-04-16 07:12] LABS: ALBUMIN 2.8 G/DL (3.4-5.0); ANION GAP 6 (8-16); BLOOD UREA NITROGEN 10 MG/DL (7-18); BUN/CREATININE RATIO 12.2 (10.0-20.0); CALCIUM 8.7 MG/DL (8.5-10.1); CHLORIDE 99 MMOL/L (99-107); CREATININE 0.82 MG/DL (0.40-0.90); GLUCOSE 109 MG/DL (70-104); POTASSIUM 3.8 MMOL/L (3.5-5.1); SODIUM 130 MMOL/L (135-145); TOTAL CARBON DIOXIDE 25.4 MMOL/L (24-32); eGFR 69 ML/MIN
[2023-04-16] MEDS: docusate sod 100mg capsule PO SCH ×2 (08:19→20:16)
[2023-04-16] MEDS ORDERED: HYDROcodone/acetaminophen 10/325mg tab PO PRN (09:15)
[2023-04-16] MEDS: metoprolol tartrate 12.5mg (1/2 tablet) PO SCH ×2 (09:28→20:00)
[2023-04-16] MEDS: losartan 50mg tablet PO SCH (09:29)
[2023-04-16] MEDS: HYDROchlorothiazide 25mg tablet PO SCH (09:30)
[2023-04-16] MEDS ORDERED: normal saline 1000ml 1,000 ML IV ONE (12:25)
--- NOTE | 2023-04-16 12:25 | NUR ---
Dr. Ragsdale in to round. Pt has not voided yet and reported no urgency or discomfort. Bladder scan 7ml noted with no bladder distention felt. Further orders obtained.
[2023-04-16] MEDS ORDERED: oxybutynin 5mg tablet PO ONE (13:10)
[2023-04-16] MEDS ORDERED: amiodarone 200mg tablet PO ONE (13:10)
--- NOTE | 2023-04-16 15:50 | NUR ---
Pt reported still unable to void. Bladder scanned pt with 0ml noted. No bladder distention noted. Dr. Ragsdale notified and in to see pt.
[2023-04-16] MEDS ORDERED: furosemide 40mg/4ml inj IV ONE (16:15)
[2023-04-16] MEDS ORDERED: LidoCAINE 2% Topical Jelly 11mL syringe MM ONE (16:25)
--- NOTE | 2023-04-16 16:45 | NUR ---
16 estonian jernigan catheter inserted by Morena MARTINEZ with 300ml of dark yellow urine obtained. Lasix was given per order just prior to procedure. Pt tolerated well.
--- NOTE | 2023-04-16 18:00 | NUR ---
Patient in room ORTHO 4009. I have received report from MICHELLE Whitfield and had the opportunity to ask questions and assume patient care.
[2023-04-16] MEDS ORDERED: DOCUSATE SODIUM PO SCH (20:00)
[2023-04-16] MEDS: apixaban 5mg tablet PO SCH (20:00)
[2023-04-16] MEDS: oxybutynin 5mg tablet PO SCH (20:16)
[2023-04-17] MEDS: HYDROcodone/acetaminophen 10/325mg tab PO PRN ×2 (03:36→07:58)
--- NOTE | 2023-04-17 05:55 | NUR ---
no signs of vaginal bleeding.
--- NOTE | 2023-04-17 06:27 | NUR ---
Problems reprioritized. Patient report given, questions answered & plan of care reviewed with MICHELLE Washburn.
--- NOTE | 2023-04-17 06:41 | NUR ---
Patient in room ORTHO 4009. I have received report from Gloria MARTINEZ and had the opportunity to ask questions and assume patient care.
[2023-04-17 06:59] VITALS: BP 124/56; PULSE 60; RESP 16; TEMP 98.6; O2SAT 92
[2023-04-17] MEDS: HYDROchlorothiazide 25mg tablet PO SCH (07:42)
[2023-04-17] MEDS: metoprolol tartrate 12.5mg (1/2 tablet) PO SCH (07:42)
[2023-04-17] MEDS: losartan 50mg tablet PO SCH (07:43)
[2023-04-17] MEDS: docusate sod 100mg capsule PO SCH (07:43)
[2023-04-17] MEDS: oxybutynin 5mg tablet PO SCH (07:43)
[2023-04-17] MEDS ORDERED: cholecalciferol (vitamin D3) 1,000 unit (25mcg) tablet PO SCH (08:00)
[2023-04-17] MEDS ORDERED: aspirin 81mg, enteric-coated 1 TAB TABLET.DR PO SCH (08:00)
[2023-04-17] MEDS ORDERED: magnesium oxide 400mg tablet PO SCH (08:00)
[2023-04-17] MEDS ORDERED: amiodarone 200mg tablet PO SCH (08:00)
[2023-04-17] MEDS ORDERED: atorvastatin 20mg tablet PO SCH (08:00)
[2023-04-17] MEDS: apixaban 5mg tablet PO SCH (09:04)
[2023-04-17 10:00] VITALS: BP 116/64; PULSE 61; RESP 14; TEMP 97.6; O2SAT 97
--- NOTE | 2023-04-17 12:14 | NUR ---
PATIENT appears stable small amount of reddish discharge noted. Seen by Dr Ragsdale, is for DC home. All DC instructions given to patient inc [place] care. Leg bag provided. patient DC home with via private car in stable condition.
[2023-04-19 07:26] LABS: ISTAT CREATININE 0.8 mg/dL (0.6-1.1); ISTAT K 4.2 mmol/L (3.5-5.1); POC BUN/CREATININE RATIO 16.3 (6.6-38.0)
[2023-04-19 07:27] LABS: ISTAT HGB 12.6 g/dl (12.0-16.0); ISTAT IONIZED CALCIUM 1.29 mmol/L (1.03-1.32)
== END 2023-04-17 12:14 | disposition home or self-care (01) | DRG 908 ==
LOC: PAS 05:53 → ORTHO 4S 09:29 → PAS 04-17 11:30 → PAS IN 04-20 14:24 → ORTHO 4S 04-20 14:24
PROVIDERS: ADMIT Obstetrics & Gynecology Obstetrics; ATTEND Obstetrics & Gynecology Obstetrics
PROC: 0JQC3ZZ Repair Pelvic Region Subcutaneous Tissue and Fascia, Percutaneous Approach (ICD-10-PCS; 2023-04-15)
PROC: 0JQC3ZZ Repair Pelvic Region Subcutaneous Tissue and Fascia, Percutaneous Approach (ICD-10-PCS; 2023-04-15)
PROC: 0UQGXZZ Repair Vagina, External Approach (ICD-10-PCS; 2023-04-15)
PROC: 0KQM3ZZ Repair Perineum Muscle, Percutaneous Approach (ICD-10-PCS; principal; 2023-04-15 07:24)
DX: N99.820 Postprocedural hemorrhage of a genitourinary system organ or structure following a genitourinary system procedure (principal); N39.0 Urinary tract infection, site not specified; N81.10 Cystocele, unspecified; N81.6 Rectocele; I48.91 Unspecified atrial fibrillation; G47.30 Sleep apnea, unspecified; I10 Essential (primary) hypertension; Z79.899 Other long term (current) drug therapy; Z95.0 Presence of cardiac pacemaker; Z90.710 Acquired absence of both cervix and uterus
CPT/HCPCS: 36415; 71046; 80047; 80048; 80053; 81003; 82948; 85025; 86885; 86900; 86901; 87081; A4338; A4618; A5200; A6449; A7000; G0378; J0694; J1100; J1885; J1940; J2175; J2250; J2270; J2405; J2704; J2710; J3010; J3490; J7030; J7120